=== PATIENT | female | born 1960 | race Caucasian/White ===

== ENCOUNTER 2017-12-28 15:20 | Inpatient (IN) ==
[2017-12-28 16:31] LABS: Basophils % 0.4 %; Eosinophils # 0.1 K/mcL (0.0-0.6); Eosinophils % 0.7 %; Hematocrit 40.1 % (35.3-44.9); Immature Granulocytes % 0.3 % (0-4); Lymphocytes % 27.2 %; Mean Corpuscular HGB Conc 32.4 g/dL (31.6-35.5); Mean Corpuscular Volume 89.3 fL (83.0-100.0); Mean Platelet Volume 10.8 fL (9.4-12.4); Monocytes % 8.9 %; Neutrophils # 6.8 K/mcL (1.6-8.9); Platelet Count 205 K/mcL (140-400); Red Blood Count 4.49 M/mcL (3.82-4.97); Red Cell Distribution Width 13.9 % (11.5-14.5); Segmented Neutrophils % 62.5 %
[2017-12-28 16:39] LABS: Prothrombin Time 11.4 Seconds (9.4-12.1)
[2017-12-28 16:48] LABS: Calcium 9.9 mg/dL (8.6-10.3); Potassium 4.2 mEq/L (3.5-5.1)
--- NOTE | 2017-12-28 19:37 | Emergency Department Note ---
Disposition Clinical Impression: Spinal cord compression Disposition: Admitted As Inpatient Condition: Fair Time of Disposition: 17:25 General Adult HPI - General Chief complaint: ED General Medical Stated complaint: Needs admitted Time Seen by Provider: 12/28/17 15:51 - History of Present Illness Pain Scale: 8 - Related Data Home Medications Medication Instructions Recorded Confirmed Atorvastatin [Lipitor] 80 mg PO HS 01/03/17 12/28/17 Cholecalciferol (D-3) [Vitamin D] 5,000 unit PO DAILY 01/03/17 12/28/17 Escitalopram Oxalate 20 mg PO DAILY 01/03/17 12/28/17 Exenatide Microspheres [Bydureon 2 mg SQ Q1W 01/03/17 12/28/17 Pen] Levothyroxine Sodium [Levoxyl] 100 mcg PO DAILY 01/03/17 12/28/17 Psyllium [Metamucil Fiber Singles 1 packet PO DAILY 01/03/17 12/28/17 Packet] SitaGLIPtin [Januvia] 100 mg PO DAILY 01/03/17 12/28/17 Calcitriol [Rocaltrol] 0.25 mcg PO DAILY 12/28/17 12/28/17 Insulin Glargine,Hum.rec.anlog 12/28/17 [Lantus Solostar] Tizanidine HCl 2 mg PO HS 12/28/17 12/28/17 Allergies Allergy/AdvReac Type Severity Reaction Status Date / Time Penicillins [PCN] Allergy Hives Verified 12/28/17 15:36 Past Medical History - Past Medical History Medical history: Reports: diabetes, hyperlipidemia, hypertension, renal disease, thyroid disease Surgical history: Reports: other Psychiatric history: Reports: depression - Social History Smoking Status: Never smoker Smokeless Tobacco Status: No Alcohol use: Reports: none Drug use: Reports: none Course Vital Signs Temperature 98.5 F 12/28/17 15:36 Pulse Rate 106 12/28/17 15:36 Respiratory Rate 15 12/28/17 15:36 Blood Pressure 103/67 12/28/17 15:36 O2 Sat by Pulse Oximetry 96 12/28/17 15:36 Temperature 98.5 F 12/28/17 16:48 Pulse Rate 106 12/28/17 16:48 Respiratory Rate 15 12/28/17 16:48 Blood Pressure 103/67 12/28/17 16:48 O2 Sat by Pulse Oximetry 96 12/28/17 16:48 Oxygen Delivery Oxygen Delivery Room Air Medical Decision Making - Lab Data Result diagrams: 12/28/17 16:04 12/28/17 16:04 Lab Results 12/28/17 12/28/17 12/28/17 Range/Units 16:04 16:04 16:04 WBC 10.9 (4.3-11.1) K/mcL RBC 4.49 (3.82-4.97) M/mcL Hgb 13.0 (11.5-15.4) g/dL Hct 40.1 (35.3-44.9) % MCV 89.3 (83.0-100.0) fL MCH 29.0 (28.0-33.3) pg MCHC 32.4 (31.6-35.5) g/dL RDW 13.9 (11.5-14.5) % Plt Count 205 (140-400) K/mcL MPV 10.8 (9.4-12.4) fL Immature Gran % 0.3 (0-4) % Seg Neutrophils % 62.5 % Lymphocytes % 27.2 % Monocytes % 8.9 % Eosinophils % 0.7 % Basophils % 0.4 % Neutrophils # 6.8 (1.6-8.9) K/mcL Lymphocytes # 3.0 (0.6-4.6) K/mcL Monocytes # 1.0 (0.0-1.3) K/mcL Eosinophils # 0.1 (0.0-0.6) K/mcL Basophils # 0.0 (0.0-0.2) K/mcL PT 11.4 (9.4-12.1) Seconds INR 1.0 APTT 35.0 (26.0-36.0) Seconds Sodium 140 (136-145) mEq/L Potassium 4.2 (3.5-5.1) mEq/L Chloride 104 (98-107) mEq/L Carbon Dioxide 28 (23-29) mEq/L BUN 25 H (6-20) mg/dL Creatinine 1.56 H (0.60-1.20) mg/dL Est GFR ( Amer) 41 L (> 60) Est GFR (Non-Af Amer) 34 L (> 60) BUN/Creatinine Ratio 16 (6-26) Glucose 138 H (70-105) mg/dL Calculated Osmolality 297 (280-300) Calcium 9.9 (8.6-10.3) mg/dL Attestation Statement - Attestation Attestation: I examined this patient and my medical decision-making was reviewed with the Resident Physician. I agree with the documented findings, disposition and treatment plan as described except to the extent set forth below. Patient presents to the emergency department she complaint of an abnormal neck MRI. Patient has been having symptoms. Dr. Miller will do an outpatient MRI that shows severe cord compression with edema in the mid cervical spine. She was sent for admission and surgery. Dr. Laughlin is been notified. Patient awake and alert sitting on the edge of the bed in no acute distress on my evaluation. Symmetric offal icer poultry strength. Plan. Admission for cervical spine surgery. Patient admitted to medicine. EKG normal sinus rhythm at [address] segment changes or T-wave inversions.
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
--- NOTE | 2017-12-28 19:39 | Internal Med History&Physical ---
Date of Encounter: 12/28/17 Time of Encounter: 17:22 Internal Medicine - H&P: HPI History of present illness: 57-year-old female with significant past medical history of diabetes presenting to the emergency department with chief complaint of neck pain and abnormal MRI of the neck. Patient states for the past few months she has had increased difficulty ambulating and weakness on the left side. An MRI was obtained She has severe compression of C4 and C5 due to disc bulging. Dr. Laughlin will proceed with surgery. He requested that hospitalist admit the patient and he will see in consult. Past Med Surg Social Fam HX - Past Medical History Medical history: diabetes, hyperlipidemia, hypertension, renal disease, thyroid disease Psychiatric history: depression - Past Surgical History Surgical History: other Additional surgical history: TUBAL - Social History Smoking Status: Never smoker Smokeless Tobacco Status: No Alcohol use: none Drug use: none - Family History Brother Hx Family Cardiac Disorders: Yes Father Hx Family Cardiac Disorders: Yes Internal Medicine - H&P: Meds Atorvastatin [Lipitor] 80 mg PO HS 01/03/17 [History] Cholecalciferol (D-3) [Vitamin D] 5,000 unit PO DAILY 01/03/17 [History] Exenatide Microspheres [Bydureon Pen] 2 mg SQ Q1W 01/03/17 [History] Levothyroxine Sodium [Levoxyl] 100 mcg PO DAILY 01/03/17 [History] RX: Escitalopram Oxalate 20 mg PO DAILY 01/03/17 [History] SitaGLIPtin [Januvia] 100 mg PO DAILY 01/03/17 [History] Aspirin [Lo-Dose Aspirin EC] 81 mg PO DAILY 12/28/17 [History] Insulin Glargine,Hum.rec.anlog [Lantus Solostar] 80 units SQ HS 12/28/17 [History] Psyllium Husk [Psyllium Fiber] 0.52 gm PO BID 12/28/17 [History] RX: Calcitriol [Rocaltrol] 0.25 mcg PO DAILY 12/28/17 [History] Tizanidine HCl 2 mg PO HS 12/28/17 [History] Allergy/AdvReac Type Severity Reaction Status Date / Time Penicillins [PCN] Allergy Hives Verified 12/28/17 15:36 All Systems PM: A 10-system review of systems was performed and is negative for pertinent findings except as documented above in the HPI. - Constitutional Constitutional: no chills, no fever(s), no night sweats - EENT Eyes: no change in vision, no discharge, no pain, no photophobia Ears: no ear discharge, no ear pain, no tinnitus Nose, mouth and throat: no dysphagia, no nasal discharge, no neck pain, no sore throat - Cardiovascular Cardiovascular ROS IM: no chest pain, no diaphoresis, no dyspnea, no lightheadedness, no palpitations, no syncope - Gastrointestinal Gastrointestinal: no abdominal pain, no diarrhea, no hematemesis, no hematochezia, no melena, no nausea, no vomiting - Neurological Neurological ROS: weakness, no confusion, no convulsions, no focal weakness, no numbness, no tingling, no tremor(s) - Constitutional Vitals: Temp Pulse Resp BP Pulse Ox 98.5 F 106 15 103/67 96 12/28/17 16:48 12/28/17 16:48 12/28/17 16:48 12/28/17 16:48 12/28/17 16:48 General appearance: Present: A&O X 3 Exam: see below - Head Head exam: Present: atraumatic, normocephalic - Neck Neck exam general surgery: Present: supple, trachea midline. Absent: lymphadenopathy - Cardiovascular Cardiovascular exam: Present: RRR, +S1, +S2. Absent: diastolic murmur, gallop, rubs, systolic murmur - GI/Abdominal GI/Abdominal exam: Present: normal bowel sounds, soft, no peritoneal signs. Absent: distended, tenderness - Extremities Exam Extremities exam: Present: warm, radial pulses palpable and symmetrical. Absent: calf tenderness, cyanotic, pedal edema Internal Med - H&P Results - Labs CBC & Chem 7: 12/31/17 05:06 12/31/17 05:06 Labs: Short CBC 12/28/17 Range/Units 16:04 WBC 10.9 (4.3-11.1) K/mcL Hgb 13.0 (11.5-15.4) g/dL Hct 40.1 (35.3-44.9) % Plt Count 205 (140-400) K/mcL Neutrophils # 6.8 (1.6-8.9) K/mcL BMP 12/28/17 16:04 Sodium 140 Potassium 4.2 Chloride 104 Carbon Dioxide 28 BUN 25 H Creatinine 1.56 H Glucose 138 H Calcium 9.9 - Assessment and plan (1) Spinal cord compression Current Visit: Yes Status: Acute Assessment and plan: The patient was sent from Dr. Hetal vyas with abnormal MRI. He will see her in consult. 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 marine terminal insulin use: with laborer marine terminal use Diabetes mellitus complication status: with kidney complications Diabetes mellitus complication detail: with chronic kidney disease Chronic kidney disease stage: stage 3 (moderate) Qualified Code(s): E11.22 - Type 2 diabetes mellitus with diabetic chronic kidney disease; N18.3 - Chronic kidney disease, stage 3 (moderate); Z79.4 - [facility] (current) use of insulin (4) DVT prophylaxis Current Visit: Yes Status: Acute Assessment and plan: We will start the patient on SCDs - Time Spent With Patient Total time spent is greater than 50% in coordination of care (as documented) at patient's floor/unit and/or counseling patient:
[2017-12-28] MEDS ORDERED: OXYCODONE Oral CONC 10 MG/0.5 ML ORAL.SYG SL PRN (19:43)
[2017-12-28] MEDS ORDERED: Mag Hydrox/Al Hydrox/Simeth 30 ML UDC PO PRN (19:43)
[2017-12-28] MEDS ORDERED: *HR* OxyCODONE Immed Rel 5 MG TABLET PO PRN (19:43)
[2017-12-28] MEDS ORDERED: Naloxone 0.4 MG/ML INJ IVP PRN (19:43)
[2017-12-28] MEDS ORDERED: *HR* HYDROcodone/Acet 5/325 mg TABLET PO PRN (19:43)
[2017-12-28] MEDS ORDERED: Acetaminophen 325 MG TABLET PO PRN (19:43)
[2017-12-28] MEDS ORDERED: (Exenatide Microspheres [Bydureon Pen] 2 MG) SQ SCH (19:45)
[2017-12-28] MEDS ORDERED: Dextrose Gel 15 GM/37.5 ML TUBE PO PRN ×2 (20:42)
[2017-12-28] MEDS ORDERED: D5% in Water 1,000 ML IVC PRN (20:42)
[2017-12-28 20:55] LABS: Activated Partial Thrombo Time 22.7 Seconds (26.0-36.0)
[2017-12-28 21:02] LABS: Chol/HDL Ratio 2.7 (0-4.9)
[2017-12-28] MEDS: tiZANidine 4 MG TABLET PO SCH (21:42)
[2017-12-28] MEDS: 0.9 % Sodium Chloride 1,000 ML IVC SCH (21:43)
[2017-12-29] MEDS: Insulin LISPRO 300 UNITS/3 ML VIAL SQ SCH ×4 (00:38→17:38)
[2017-12-29] MEDS: *HR* Dextrose 50 % in Water (Syg) 50 ML SYRINGE IVP PRN ×2 (00:48→06:02)
[2017-12-29] MEDS: 0.9 % Sodium Chloride 1,000 ML IVC SCH (05:41)
[2017-12-29] MEDS ORDERED: D5% in 0.45% NACL 1,000 ML IVC SCH (06:15)
[2017-12-29 06:22] LABS: Hematocrit 38.7 % (35.3-44.9); Hemoglobin 12.4 g/dL (11.5-15.4); Mean Corpuscular Hemoglobin 28.7 pg (28.0-33.3); Mean Corpuscular Volume 89.6 fL (83.0-100.0); Mean Platelet Volume 10.8 fL (9.4-12.4); Platelet Count 197 K/mcL (140-400); Red Blood Count 4.32 M/mcL (3.82-4.97); Red Cell Distribution Width 13.8 % (11.5-14.5)
[2017-12-29 06:52] LABS: Albumin 3.7 g/dL (3.5-5.7); Albumin/Globulin Ratio 1.2 (1.1-2.2); Bilirubin,Total 0.5 mg/dL (0.3-1.0); Calcium 9.6 mg/dL (8.6-10.3); Globulin 3.1 g/dL (2.4-3.5); Magnesium 1.9 mg/dL (1.6-2.6); Phosphorous 3.3 mg/dL (2.7-4.5); Potassium 4.2 mEq/L (3.5-5.1); Total Protein 6.8 g/dL (6.4-8.9)
[2017-12-29] MEDS ORDERED: *HR* SitaGLIPtin 100 MG TABLET PO SCH (09:00)
[2017-12-29] MEDS: Psyllium 1 PACKET POWD.PACK PO SCH (10:49)
[2017-12-29] MEDS: Cholecalciferol (D-3) 1,000 UNIT TABLET PO SCH (10:49)
--- NOTE | 2017-12-29 11:55 | Internal Med Progress Note ---
Hospitalist Progress Note - Encounter Date of Encounter: 12/29/17 Time of Encounter: 11:15 - Subjective Interval History: H&P reviewed. 57-year-old female with diabetes, hypertension, CKD, is admitted for cervical spinal cord compression. a/w spine surgery evaluation today. No active complaints other than chronic neck pain and L sided weakness. - Exam Vitals: Temp Pulse Resp BP Pulse Ox 98.0 F 80 19 127/79 100 12/29/17 11:06 12/29/17 11:06 12/29/17 11:06 12/29/17 11:06 12/29/17 11:06 Exam: General: Alert and oriented, not in acute distress. Cardiovascular:Normal S1 & S2, No JVD. Pulse regular. Lungs: clear to auscultation, no wheezes/rales Abdomen:Soft, non-tender, no rigidity. Neurological: LUE and LE power 4-/5, R UE/LE power and sensation intact. Unable to appreciate Smith sign - Assessment and Plan (1) Spinal cord compression Current Visit: Yes Status: Acute Assessment and Plan: a/w spine surgery evaluation, NPO for now analgesics (2) Diabetes mellitus Current Visit: Yes Status: Chronic Assessment and Plan: On Lantus 80U at HS, exenatide, and Januvia at home. hold off on exenatide and Januvia sliding scale coverage while NPO, resume levemir at lower dose (3) Hypothyroid Current Visit: No Status: Chronic Assessment and Plan: resume home meds (4) DVT prophylaxis Current Visit: Yes Status: Acute Assessment and Plan: SQ heparin - Time Spent with Patient Total time spent is greater than 50% in coordination of care (as documented) at patient's floor/unit and/or counseling patient: Plan of Care Discussed with: patient Internal Medicine: Result - Labs CBC & Chem 7: 12/29/17 05:59 12/29/17 05:59 Labs: Short CBC 12/28/17 12/29/17 Range/Units 16:04 05:59 WBC 10.9 8.8 (4.3-11.1) K/mcL Hgb 13.0 12.4 (11.5-15.4) g/dL Hct 40.1 38.7 (35.3-44.9) % Plt Count 205 197 (140-400) K/mcL Neutrophils # 6.8 (1.6-8.9) K/mcL BMP 12/28/17 12/29/17 16:04 05:59 Sodium 140 145 Potassium 4.2 4.2 Chloride 104 110 H Carbon Dioxide 28 27 BUN 25 H 22 H Creatinine 1.56 H 1.37 H Glucose 138 H 66 L Calcium 9.9 9.6 Liver Function 12/29/17 Range/Units 05:59 Total Bilirubin 0.5 (0.3-1.0) mg/dL AST 22 (13-39) Units/L ALT 21 (7-52) Units/L Alkaline Phosphatase 77 (34-104) Units/L Albumin 3.7 (3.5-5.7) g/dL - ABG Interpretation ABG results: PT/INR, D-dimer PT 11.0 Seconds (9.4-12.1) 12/28/17 20:27 Consult Discharge Plan - Plan Referrals: Irma Raymundo, OCEAN FREIGHT AGENT [Primary Care Provider] - ____ (2) Diabetes mellitus Qualifiers: Diabetes mellitus type: type 2 Diabetes mellitus snf insulin use: with terminal block assembler use Diabetes mellitus complication status: with kidney complications Diabetes mellitus complication detail: with chronic kidney disease Chronic kidney disease stage: stage 3 (moderate) Qualified Code(s): E11.22 - Type 2 diabetes mellitus with diabetic chronic kidney disease; N18.3 - Chronic kidney disease, stage 3 (moderate); Z79.4 - predatory animal exterminator (current) use of insulin (3) Hypothyroid Qualifiers: Hypothyroidism type: unspecified Qualified Code(s): E03.9 - Hypothyroidism, unspecified
[2017-12-29 14:12] LABS: Bilirubin,Urine Negative (Negative); Blood,Urine Negative (Negative); Clarity,Urine Clear (Clear); Color,Urine Yellow (Yellow); Glucose,Urine (UA) Normal (Normal); Ketones,Urine Negative (Negative); Leukocyte Esterase,Urine Small (Negative); Nitrite,Urine Negative (Negative); PH,Urine 6.5 pH Units (5.0-8.0); Protein,Urine Negative (Neg-Trace); Specific Gravity,Urine 1.006 (1.010-1.025); Urobilinogen,Urine Normal (Normal)
[2017-12-29 14:15] LABS: Hyaline Casts,Urine None Seen per lpf (None-Few)
[2017-12-29 14:42] LABS: Squamous Epithelial Cell,Urine Few per lpf (None-Few)
[2017-12-29 14:43] LABS: RBC,Urine 0-3 per hpf (0-3)
[2017-12-29 14:44] LABS: Bacteria,Urine Many per hpf (None-Few); Yeast,Urine Moderate per hpf (None Seen)
[2017-12-29] MEDS ORDERED: D5% in Water 1,000 ML IVC PRN (17:21)
[2017-12-29] MEDS: *HR* Heparin 5,000 UNIT/ML VIAL SQ SCH (17:44)
[2017-12-29] MEDS ORDERED: Insulin DETEMIR 100 UNIT/ML X5UNITS SQ SCH (21:00)
[2017-12-29] MEDS: tiZANidine 4 MG TABLET PO SCH (21:03)
[2017-12-30] MEDS: Insulin LISPRO 300 UNITS/3 ML VIAL SQ SCH ×4 (01:30→17:54)
[2017-12-30] MEDS: *HR* Heparin 5,000 UNIT/ML VIAL SQ SCH ×2 (06:26→17:55)
[2017-12-30] MEDS: Aspirin Enteric Coated 81 MG Tablet PO SCH (09:22)
[2017-12-30] MEDS: Cholecalciferol (D-3) 1,000 UNIT TABLET PO SCH (09:22)
[2017-12-30] MEDS: Psyllium 1 PACKET POWD.PACK PO SCH (09:23)
--- NOTE | 2017-12-30 10:30 | Internal Med Progress Note ---
Hospitalist Progress Note - Encounter Date of Encounter: 12/30/17 Time of Encounter: 09:50 - Subjective Interval History: No new events overnight, still a/w for spine surgery. No active complaints other than chronic neck pain and L sided weakness. - Exam Vitals: Temp Pulse Resp BP Pulse Ox 97.8 F 77 17 103/68 98 12/30/17 07:35 12/30/17 07:35 12/30/17 07:35 12/30/17 07:35 12/30/17 07:35 Exam: General: Alert and oriented, not in acute distress. Cardiovascular:Normal S1 & S2, No JVD. Pulse regular. Lungs: clear to auscultation, no wheezes/rales Abdomen:Soft, non-tender, no rigidity. Neurological: LUE and LE power 4-/5, R UE/LE power and sensation intact. Unable to appreciate Smith sign - Assessment and Plan (1) Spinal cord compression Current Visit: Yes Status: Acute Assessment and Plan: a/w spine surgery evaluation, unlikely to have op done today so will feed her analgesics (2) Diabetes mellitus Current Visit: Yes Status: Chronic Assessment and Plan: On Lantus 80U at HS, exenatide, and Januvia at home. hold off on exenatide and Januvia cut back levemir to 25U at HS in view of hypoglycemic episode this AM, continue sliding scale coverage ADA diet (3) Hypothyroid Current Visit: No Status: Chronic Assessment and Plan: resume home meds (4) DVT prophylaxis Current Visit: Yes Status: Acute Assessment and Plan: SQ heparin - Time Spent with Patient Total time spent is greater than 50% in coordination of care (as documented) at patient's floor/unit and/or counseling patient: Plan of Care Discussed with: nurse Internal Medicine: Result - Labs CBC & Chem 7: 12/29/17 05:59 12/29/17 05:59 Labs: Urine 12/28/17 Range/Units 13:35 Urine Color Yellow (Yellow) Urine Clarity Clear (Clear) Urine pH 6.5 (5.0-8.0) pH Units Ur Specific [place] 1.006 L (1.010-1.025) Urine Protein Negative (Neg-Trace) mg/dL Urine Glucose (UA) Normal (Normal) mg/dL - ABG Interpretation ABG results: PT/INR, D-dimer PT 11.0 Seconds (9.4-12.1) 12/28/17 20:27 Consult Discharge Plan - Plan Referrals: Irma Raymundo, OIL WELL FISHING TOOL OPERATOR [Primary Care Provider] - (2) Diabetes mellitus Qualifiers: Diabetes mellitus type: type 2 Diabetes mellitus intermodal dispatcher insulin use: with intermodal dispatcher use Diabetes mellitus complication status: with kidney complications Diabetes mellitus complication detail: with chronic kidney disease Chronic kidney disease stage: stage 3 (moderate) Qualified Code(s): E11.22 - Type 2 diabetes mellitus with diabetic chronic kidney disease; N18.3 - Chronic kidney disease, stage 3 (moderate); Z79.4 - computer terminal operator (current) use of insulin (3) Hypothyroid Qualifiers: Hypothyroidism type: unspecified Qualified Code(s): E03.9 - Hypothyroidism, unspecified
[2017-12-30] MEDS: tiZANidine 4 MG TABLET PO SCH (20:47)
[2017-12-30] MEDS ORDERED: Insulin DETEMIR 100 UNIT/ML X5UNITS SQ SCH (21:00)
[2017-12-31 05:41] LABS: Hematocrit 38.2 % (35.3-44.9); Hemoglobin 12.3 g/dL (11.5-15.4); Mean Corpuscular HGB Conc 32.2 g/dL (31.6-35.5); Mean Corpuscular Hemoglobin 28.5 pg (28.0-33.3); Mean Corpuscular Volume 88.4 fL (83.0-100.0); Mean Platelet Volume 10.7 fL (9.4-12.4); Platelet Count 177 K/mcL (140-400); Red Blood Count 4.32 M/mcL (3.82-4.97); Red Cell Distribution Width 13.7 % (11.5-14.5)
[2017-12-31 05:45] LABS: Prothrombin Time 11.6 Seconds (9.4-12.1)
[2017-12-31 05:55] LABS: Potassium 4.1 mEq/L (3.5-5.1)
[2017-12-31] MEDS: *HR* Heparin 5,000 UNIT/ML VIAL SQ SCH (06:17)
--- NOTE | 2017-12-31 07:40 | Spinal Consult Note ---
Date of Encounter: 12/30/17 Time of Encounter: 19:10 Assessment and Plan (1) Cervical stenosis of spinal canal Current Visit: Yes Status: Chronic (2) Myelomalacia of cervical cord Current Visit: Yes Status: Chronic (3) Cervical myelopathy Current Visit: Yes Status: Chronic On exam she is alert and mild distress secondary to neck pain afebrile vital signs stable. She has some wasting of her intrinsic of the left hand. She has a positive finger escape sign. She is unable to make a fist fully. She has impairment and dexterity with rapid alternating movements of the hands. 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 She is able to fire all upper extremity motor groups. Lungs are clear. Cardiovascular regular rate and rhythm. Abdomen obese and soft nontender. Her hips move symmetrically. There is no clonus. MRI of the cervical spine reveals multilevel degenerative changes. There is severe stenosis at C4-5 with spinal cord compression and associated myelomalacia of the spinal cord at this level. There is at least moderate stenosis at C5-6. Impression: 1) severe cervical stenosis with spinal cord compression 2) cervical myelopathy 3) myelomalacia of the cervical cord Plan: The patient has likelihood for neurologic progression. In this regard I find it reasonable to consider surgery in the form of anterior cervical decompression fusion C4-C6. Risk benefits possible complications and alte rnatives were fully discussed with the patient and she would like to proceed. Patient understands she must be medically optimized and cleared prior to surgical intervention. History of Present Illness Chief complaint: " falling a lot" HPI: Ms. Carrillo is a 57 year old female Who was seen by Dr. Redman as well as neurology whose had frequent falls as well as weakness left side greater than right. As part of workup MRI of the cervical spine was performed and it showed severe findings consistent with spinal cord compression. We are asked to see regarding definitive management. She denies bowel/blader symptoms but has signifcant neck pain. Past Med Surg Social Fam HX - Past Medical History Medical history: diabetes, hyperlipidemia, hypertension, renal disease, thyroid disease Psychiatric history: depression - Past Surgical History Surgical History: other Additional surgical history: TUBAL - Social History Smoking Status: Never smoker Smokeless Tobacco Status: No Alcohol use: none Drug use: none - Family History Brother Hx Family Cardiac Disorders: Yes Father Hx Family Cardiac Disorders: Yes Medications and Allergies Atorvastatin [Lipitor] 80 mg PO HS 01/03/17 [History] Cholecalciferol (D-3) [Vitamin D] 5,000 unit PO DAILY 01/03/17 [History] Escitalopram Oxalate 20 mg PO DAILY 01/03/17 [History] Exenatide Microspheres [Bydureon Pen] 2 mg SQ Q1W 01/03/17 [History] Levothyroxine Sodium [Levoxyl] 100 mcg PO DAILY 01/03/17 [History] SitaGLIPtin [Januvia] 100 mg PO DAILY 01/03/17 [History] Aspirin [Lo-Dose Aspirin EC] 81 mg PO DAILY 12/28/17 [History] Calcitriol [Rocaltrol] 0.25 mcg PO DAILY 12/28/17 [History] Insulin Glargine,Hum.rec.anlog [Lantus Solostar] 80 units SQ HS 12/28/17 [History] Psyllium Husk [Psyllium Fiber] 0.52 gm PO BID 12/28/17 [History] Tizanidine HCl 2 mg PO HS 12/28/17 [History] Allergy/AdvReac Type Severity Reaction Status Date / Time Penicillins [PCN] Allergy Hives Verified 12/28/17 15:36 Results - Labs Result Diagrams: 12/31/17 05:06 12/31/17 05:06 Labs: Abnormal lab results APTT 22.7 Seconds (26.0-36.0) L 12/28/17 20:27 Creatinine 1.56 mg/dL (0.60-1.20) H 12/31/17 05:06 Est GFR ( Amer) 41 (> 60) L 12/31/17 05:06 Est GFR (Non-Af Amer) 34 (> 60) L 12/31/17 05:06 Glucose 166 mg/dL (70-105) H 12/31/17 05:06 POC Glucose 175 mg/dL (70-99) H 12/30/17 20:39 Triglycerides 164 mg/dL (< 150) H 12/28/17 20:27 VLDL Cholesterol, Calc 33 mg/dL (< 31) H 12/28/17 20:27 Ur Specific [place] 1.006 (1.010-1.025) L 12/28/17 13:35 Ur Leukocyte Esterase Small (Negative) H 12/28/17 13:35 Urine Microscopic WBC 3-5 per hpf (0-3) H 12/28/17 13:35 Urine Bacteria Many per hpf (None-Few) H 12/28/17 13:35 Urine Yeast Moderate per hpf (None Seen) H 12/28/17 13:35 H & H 12/31/17 Range/Units 05:06 Hgb 12.3 (11.5-15.4) g/dL Hct 38.2 (35.3-44.9) % All other labs normal. Consult Discharge Plan - Plan Referrals: Irma Raymundo, [employer]SEMBLER [Primary Care Provider] -
[2017-12-31] MEDS ORDERED: Clindamycin 900 MG/50 ML 900 MG/50 ML IV.SOLN IVPB ONE ×2 (08:00→11:22)
[2017-12-31] MEDS: Aspirin Enteric Coated 81 MG Tablet PO SCH (08:55)
[2017-12-31] MEDS: Insulin LISPRO 300 UNITS/3 ML VIAL SQ SCH ×3 (08:55→21:37)
[2017-12-31] MEDS: Psyllium 1 PACKET POWD.PACK PO SCH (08:56)
[2017-12-31] MEDS: Cholecalciferol (D-3) 1,000 UNIT TABLET PO SCH (08:56)
[2017-12-31] MEDS ORDERED: Bacitracin 50,000 UNIT, Polymyxin B Sulfate 500,000 UNIT, Sodium Chloride IRRigation 1,... IR ONE (09:00)
--- NOTE | 2017-12-31 10:05 | Anesthesia Evaluation PreOp ---
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: Other (c-stenosis with cervical myelopathy) Other Medical History: Renal (CRI), Diabetes Type II, Thyroid (hypo) Anesthesia History: No Prior Anesthetic Complications, Past Anesthesia (tubal) Alcohol Use: none Drug use: none Medications and Allergies Atorvastatin [Lipitor] 80 mg PO HS 01/03/17 [History] Cholecalciferol (D-3) [Vitamin D] 5,000 unit PO DAILY 01/03/17 [History] Escitalopram Oxalate 20 mg PO DAILY 01/03/17 [History] Exenatide Microspheres [Bydureon Pen] 2 mg SQ Q1W 01/03/17 [History] Levothyroxine Sodium [Levoxyl] 100 mcg PO DAILY 01/03/17 [History] SitaGLIPtin [Januvia] 100 mg PO DAILY 01/03/17 [History] Aspirin [Lo-Dose Aspirin EC] 81 mg PO DAILY 12/28/17 [History] Calcitriol [Rocaltrol] 0.25 mcg PO DAILY 12/28/17 [History] Insulin Glargine,Hum.rec.anlog [Lantus Solostar] 80 units SQ HS 12/28/17 [History] Psyllium Husk [Psyllium Fiber] 0.52 gm PO BID 12/28/17 [History] Tizanidine HCl 2 mg PO HS 12/28/17 [History] Allergy/AdvReac Type Severity Reaction Status Date / Time Penicillins [PCN] Allergy Hives Verified 12/28/17 15:36 - Meds/Allergy Pre-op Review Medications Reviewed: Yes Allergies Reviewed: Yes Beta Blockers on Current Med List: No Anesthesia Results - Labs 12/31/17 05:06 12/31/17 05:06 - Imaging EKG: report reviewed (NSR) Anesthesia Exam Selected Entries 12/31/17 07:02 Temperature 98.3 F Pulse Rate 85 Respiratory Rate 16 Blood Pressure 135/84 O2 Sat by Pulse Oximetry 96 Oxygen Delivery Method Room Air Weight: 89kg BMI 34 NPO (# of Hours): 8 - HEENT Pupil (Motor): EOMI Mallampati: II Teeth: Edentulous Oral Opening: Greater than 3 - WINDOW SHADE CUTTER [employer] MOUNTER LOC: Oriented WINDOW SHADE [employer]TER [employer] MOUNTER Motor: Normal RLE, Normal LLE, Normal Face, Deficit RUE (weakness), Deficit LUE (weakness) WINDOW SHADE [employer]TER [employer] MOUNTER Sensory: Normal: RUE, LUE, RLE, LLE, Face - Cardiac Rhythm: Regular Murmur: None - Pulmonary Breath Sounds: bilateral Clear Respiratory Effort: Symmetrical Anesthesia Assess/Plan ASA Score: 2 Modified Jarratt Scale for Level of Consciousness: Cooperative, oriented, and tranquil Anesthetic Plan: General Monitoring Plan: Standard Monitors Recovery Plan: PACU (agrees to GA)
--- NOTE | 2017-12-31 10:10 | Internal Med Progress Note ---
Hospitalist Progress Note - Encounter Date of Encounter: 12/31/17 Time of Encounter: 09:00 - Subjective Interval History: No new events overnight, was evaluated by spine surgery and planned for intervention. No active complaints other than chronic neck pain and L sided weakness. Denies chest pain, exertional dyspnea, PND, or leg swelling. Fever/chills, cough, sputum production, or abdominal pain. Unable to ascertain pt's MET as she is debilitated from L sided weakness. DVT scan -ve - Exam Vitals: Temp Pulse Resp BP Pulse Ox 98.3 F 85 16 135/84 96 12/31/17 07:02 12/31/17 07:02 12/31/17 07:02 12/31/17 07:02 12/31/17 07:02 Exam: General: Alert and oriented, not in acute distress. Cardiovascular:Normal S1 & S2, No JVD. Pulse regular. Lungs: clear to auscultation, no wheezes/rales Abdomen:Soft, non-tender, no rigidity. Neurological: LUE and LE power 4-/5, R UE/LE power and sensation intact. Unable to appreciate Smith sign - Assessment and Plan (1) Pre-op evaluation Current Visit: Yes Status: Acute Assessment and Plan: Hx of CKD and insulin dep DM, no cardiac history Patient does not have any signs and symptoms of ACS, decompensated heart failure, or malignant arrhythmia CXR without acute cardiopulmonary process RCRI 1, 0.9% of MACE, considered low risk for moderate risk surgery no further testing indicated to optimize her pre-op status (2) Spinal cord compression Current Visit: Yes Status: Acute Assessment and Plan: For op today, pre-op eval as above analgesics (3) Diabetes mellitus Current Visit: Yes Status: Chronic Assessment and Plan: On Lantus 80U at HS, exenatide, and Januvia at home. hold off on exenatide and Januvia continue levemir at 25U HS, continue sliding scale coverage NPO for op, ADA diet after (4) CKD (chronic kidney disease) stage 3, GFR 30-59 ml/min Current Visit: Yes Status: Acute Assessment and Plan: stable, monitor Cr avoid nephrotoxins (5) Hypothyroid Current Visit: No Status: Chronic Assessment and Plan: resume home meds (6) DVT prophylaxis Current Visit: Yes Status: Acute Assessment and Plan: SQ heparin - Time Spent with Patient Total time spent is greater than 50% in coordination of care (as documented) at patient's floor/unit and/or counseling patient: Plan of Care Discussed with: patient Internal Medicine: Result - Labs CBC & Chem 7: 12/31/17 05:06 12/31/17 05:06 Labs: Short CBC 12/31/17 Range/Units 05:06 WBC 8.7 (4.3-11.1) K/mcL Hgb 12.3 (11.5-15.4) g/dL Hct 38.2 (35.3-44.9) % Plt Count 177 (140-400) K/mcL BMP 12/31/17 05:06 Sodium 140 Potassium 4.1 Chloride 105 Carbon Dioxide 28 BUN 18 Creatinine 1.56 H Glucose 166 H Calcium 10.0 - ABG Interpretation ABG results: PT/INR, D-dimer PT 11.6 Seconds (9.4-12.1) 12/31/17 05:06 - Impressions Impressions Chest X-Ray 12/31/17 08:00 IMPRESSION: 1. No acute abnormality. D/ / Amado Franco MD / Amado Franco MD Interpreting Provider: Amado Franco MD Consult Discharge Plan - Plan Referrals: Irma Raymundo, FLEET SALESPERSON [Primary Care Provider] - (3) Diabetes mellitus Qualifiers: Diabetes mellitus type: type 2 Diabetes mellitus terminal carman insulin use: with terminal carman use Diabetes mellitus complication status: with kidney complications Diabetes mellitus complication detail: with chronic kidney disease Chronic kidney disease stage: stage 3 (moderate) Qualified Code(s): E11.22 - Type 2 diabetes mellitus with diabetic chronic kidney disease; N18.3 - Chronic kidney disease, stage 3 (moderate); Z79.4 - snf (current) use of insulin (5) Hypothyroid Qualifiers: Hypothyroidism type: unspecified Qualified Code(s): E03.9 - Hypothyroidism, unspecified
[2017-12-31] MEDS ORDERED: *HR* Succinylcholine 200 MG/10 ML VIAL IVP ONE (10:11)
[2017-12-31] MEDS ORDERED: Lidocaine -MPF 4% 5 ML AMPUL ONE (10:11)
[2017-12-31] MEDS ORDERED: Lidocaine -MPF 2% 2 ML VIAL ONE (10:11)
[2017-12-31] MEDS ORDERED: Propofol 500 MG/50 ML INFUS..BTL ONE ×3 (10:11→11:49)
[2017-12-31] MEDS ORDERED: Ondansetron 4 MG/2 ML VIAL ONE ×2 (10:11→13:20)
[2017-12-31] MEDS ORDERED: *HR* Propofol 200 MG/20 ML VIAL IVP ONE ×3 (10:11→12:58)
[2017-12-31] MEDS ORDERED: *HR* FentaNYL (PF) 100 MCG/2 ML VIAL ONE (10:11)
[2017-12-31] MEDS ORDERED: *HR* Remifentanil 1 MG VIAL IVP ONE (10:12)
[2017-12-31] MEDS ORDERED: Acetaminophen IV 1,000 MG/100 ML INFUS..BTL ONE (12:27)
[2017-12-31] MEDS ORDERED: *HR* HYDROmorphone (PF) 1 MG/ML SYRINGE ONE (12:27)
[2017-12-31] MEDS ORDERED: Ondansetron 4 MG/2 ML VIAL IVP ONE (12:43)
[2017-12-31] MEDS ORDERED: *HR* OxyCODONE Immed Rel 5 MG TABLET PO PRN (12:43)
[2017-12-31] MEDS ORDERED: *HR* Promethazine 25 MG/ML VIAL IVP PRN (12:43)
--- NOTE | 2017-12-31 13:36 | Orthopedic Operative Note ---
Date of procedure: 12/31/17 Pre-op diagnosis: Cervical stenosis, cervical myelopathy, myelomalacia of the cervical cord Post-op diagnosis: same Operation/Findings: Anterior cervical decompression and fusion C4-C6: The patient was brought to the operating room and placed supine on the operating room table. Successful general endotracheal anesthesia intubation was performed. Neurophysiologic monitoring personnel placed leads on the upper and lower extremities as well as the cranium for EMG monitoring purposes. Appropriate baseline potentials were noted by the neurophysiologic monitoring staff. Butlre catheter was placed prior to positioning. Compression boots and stockings were placed for deep vein thrombosis prophylaxis. Padding was also placed all bony prominences including the ulnar nerve near the medial epicondyles of the elbows were appropriately padded. Mild traction was placed on the bilateral shoulders and taped into place. Preoperative antibiotics were administered. The area from the mandible bilaterally to the upper thoraces was prepped and draped in the usual sterile fashion. A transverse incision was made at the level of the cricoid cartilage which is approximately 3 cm in length and extended from the midline of the cervical spine laterally towards the sternocleidomastoid muscle on the left. We then performed standard medial approach to the carotid sheath. Sponges were used to tease the fascial medial to the sternocleidomastoid muscle while carefully controlling and palpating the carotid artery. Using careful dissection we were able to get to the level of the anterior vertebral bodies and longus coli muscles. The spinal needle was placed at the appropriate C4-5 level, and intraoperative radiograph was obtained which was a cervical spine lateral radiograph. The needle and radiograph confirmed we were at the correct C4-5 operative level. We further exposed this level by using Bovie cautery under the medial edge of the longus colli muscles to allow them to be retracted approximately 2 mm laterally on each side. An 11 blade was used to perform anterior discectomy at the appropriate C4-5 level after an initial annulotomy of the anterior longitudinal ligament and annulus was performed. Further disc material was removed with pituitary Rongeurs. Subsequently, Synthes pins were placed at the C4 and C5 vertebral bodies respectively to provide distraction. We then used a Trimline cervical retractor which was placed in both medial and lateral as well as inferior superior direction to allow full visualization of the appropriate C4-5 disc and C4 and C5 vertebral bodies. The Leica microscope was brought to the field and the remainder of the procedure was performed under the guidance of this microscope. Using pituitary rongeurs and small curettes, various micro-instruments, a full discectomy was performed at the appropriate C4-5 level. The posterior longitudinal ligament was encountered and appeared partially calcified. A portion of this ligament was removed. After complete and thorough discectomy and removal of spondylitic material was performed the endplates of the C4 and C5 vertebral bodies were prepared with a bur until allow bleeding of cancellous bone. A 8mm trial graft was evaluated and appeared to fit quite well within the excised C4-5 disc space. A cortico-cancellous allograft of 8 mm was utilized, carefully tapped into place within the excised disc space with the aid of a bone tamp. It was seated approximately 2 mm from the anterior edge of the cortex of the adjacent vertebral bodies. We then turned our attention to the C5-6 level where a similar series of procedures was performed including discectomy, removal of spondylitic material, end plate preparation, and trial grafting. An 8mm trial fit well within the C5-6 disc space. A 8 mm allograft was then placed at C5-6. A 42.5 mm cervical plate was then placed on the anterior aspect of the C4, C5, and C6 vertebral bodies. The plate was placed in the midline position after drilling six 13 mm self tapping screws and inserting them. They were locked in place using standard Venture plate maneuvers. At this point a lateral radiograph of the cervical spine was obtained and showed satisfactory position of the graft and plate. The wound was copiously irrigated and bleeders encountered were cauterized using Bovie cautery. Platysma was closed with interrupted 2-0 Vicryl sutures. Running 3-0 Monocryl suture was used for skin closure. Sterile dressing was placed over the neck wound. A cervical collar was placed. The patient was transferred to a hospital bed and extubated. The patient was noted to be fully motor and sensory intact in the recovery room at the end of the procedure. The medications. All sponge instrument and needle counts were correct at the end of the procedure. Anesthesia: GETA Surgeon: Man Laughlin Jr Was there an special education assistant present: No Estimated blood loss (cc): 25 Specimen: None Condition: stable Disposition: PACU
[2017-12-31] MEDS ORDERED: *HR* PHENYLEPHRINE 1,000 MCG/10 ML SYRINGE IVP ONE (14:36)
[2017-12-31] MEDS: *HR* HYDROmorphone (PF) 1 MG/ML SYRINGE IVP PRN ×2 (14:37→14:54)
[2017-12-31] MEDS ORDERED: EPHEDrine 50 MG/ML VIAL ONE (14:42)
[2017-12-31] MEDS ORDERED: Ringers Solution, Lactated 1,000 ML ONE (15:21)
[2017-12-31] MEDS ORDERED: Acetaminophen 325 MG TABLET PO PRN (15:38)
[2017-12-31] MEDS ORDERED: Ondansetron 4 MG/2 ML VIAL IVP PRN (15:38)
[2017-12-31] MEDS ORDERED: Naloxone 0.4 MG/ML INJ IVP PRN (15:38)
[2017-12-31] MEDS ORDERED: Ringers Solution, Lactated 1,000 ML IVC SCH (15:38)
--- NOTE | 2017-12-31 15:42 | Anesthesia Evaluation Post Op ---
Date of Encounter: 12/31/17 Time of Encounter: 15:22 - Vital Signs Vital Signs: Vital Signs/O2 Sat, Most Current Temp Pulse Resp BP Pulse Ox 97.9 F 78 20 114/70 98 12/31/17 15:17 12/31/17 15:17 12/31/17 15:17 12/31/17 15:17 12/31/17 15:17 - Lungs Lungs: Clear Ascult./Percussion - Airway Airway: Non-obstructed - Cardiovascular Regular Rate, Baseline Rhythm - Mental Status Mental Status: Alert & Oriented, Answers Appropriately - Pain Pain Scale: 0 Pain Scale used: Numeric (1 - 10) (verbalized) - Nausea Vomiting Nausea Vomiting: Not Present - Hydration Hydration: Tolerates oral liquids, Has not voided - Discharge PostOp Status: Transfer Patient to floor
[2017-12-31] MEDS ORDERED: Clindamycin 600 MG/50 ML 600 MG/50 ML IV.SOLN IVPB SCH (18:00)
[2017-12-31] MEDS ORDERED: *HR* Heparin 5,000 UNIT/ML VIAL SQ SCH (18:00)
[2017-12-31] MEDS: Insulin DETEMIR 100 UNIT/ML X5UNITS SQ SCH (21:40)
[2017-12-31] MEDS: Clindamycin 600 MG/50 ML 600 MG/50 ML IV.SOLN IVPB SCH (23:42)
[2017-12-31] MEDS: *HR* HYDROcodone/Acet 5/325 mg TABLET PO PRN (23:50)
[2018-01-01] MEDS ORDERED: Clindamycin 600 MG in D5% in Water 50 ML IVPB SCH
[2018-01-01] MEDS: Clindamycin 600 MG/50 ML 600 MG/50 ML IV.SOLN IVPB SCH (08:35)
[2018-01-01] MEDS: Insulin LISPRO 300 UNITS/3 ML VIAL SQ SCH ×4 (08:35→22:05)
--- NOTE | 2018-01-01 12:52 | Internal Med Progress Note ---
Hospitalist Progress Note - Encounter Date of Encounter: 01/01/18 Time of Encounter: 12:48 - Subjective Interval History: Pt seen and examined in the room. She is comfortable and has no complaints at this time. reported mild improvement of numbness. left foot swelling while sitting up, she is concerned for DVT. otherwise, she stated no pain on the surgi billie site. - Exam Vitals: Temp Pulse Resp BP Pulse Ox 98.6 F 88 16 114/75 92 01/01/18 10:49 01/01/18 10:49 01/01/18 10:49 01/01/18 10:49 01/01/18 10:49 Exam: PHYSICAL EXAMINATION: GENERAL APPEARANCE: The patient is alert, oriented and in no acute distress. HEENT: Head is normocephalic. The sinuses are nontender. Pupils are equal and reactive. The nares are patent. Oropharynx clear without lesions. NECK: surgical site with dry and intact dressing on the anterior neck.. HEART: Regular rate and rhythm. LUNGS: No crackles or wheezes are heard. ABDOMEN: Soft, nontender, nondistended with good bowel sounds heard. Inguinal area is normal. EXTREMITIES: Without cyanosis, clubbing or edema. NEUROLOGICAL: Gross nonfocal. SKIN: Warm and dry without any rash. - Assessment and Plan (1) Spinal cord compression Current Visit: Yes Status: Acute Assessment and Plan: Pt presented with abnormal MRI, which revealed severe cervical spinal stenosis, cervical myelopathy, and cervical myelomalacia. She underwent L5 to L7 decompression with fusion on 12/31/[address] Laughlin. She is stable. PT/OT following, medical social worker following for discharge planning. (2) Hypertension Current Visit: Yes Status: Acute Assessment and Plan: BP controlled, continue home medication. (3) Diabetes mellitus Current Visit: Yes Status: Chronic Assessment and Plan: Continue insulin sliding scale. (4) DVT prophylaxis Current Visit: Yes Status: Acute Assessment and Plan: Continue SCDs and heparin subcutaneous. - Time Spent with Patient Total time spent is greater than 50% in coordination of care (as documented) at patient's floor/unit and/or counseling patient: Greater than 35 minutes Plan of Care Discussed with: patient Internal Medicine: Result - Labs CBC & Chem 7: 12/31/17 05:06 12/31/17 05:06 - ABG Interpretation ABG results: PT/INR, D-dimer PT 11.6 Seconds (9.4-12.1) 12/31/17 05:06 - Impressions Impressions Cervical Spine X-Ray 12/31/17 13:14 IMPRESSION: 1. Expected new postoperative changes from C4 to at least C5 as above. 2. At least minimal to mild cervical spine degenerative changes. D/ / Storm Ingram MD / Storm Ingram MD Interpreting Provider: Storm Ingram MD Consult Discharge Plan - Plan Referrals: Irma Raymundo WOOD INSPECTOR [Primary Care Provider] - (2) Hypertension Qualifiers: Hypertension type: essential hypertension Qualified Code(s): I10 - Essential (primary) hypertension (3) Diabetes mellitus Qualifiers: Diabetes mellitus type: type 2 Diabetes mellitus oysterman insulin use: with fci use Diabetes mellitus complication status: with kidney complications Diabetes mellitus complication detail: with chronic kidney disease Chronic kidney disease stage: stage 3 (moderate) Qualified Code(s): E11.22 - Type 2 diabetes mellitus with diabetic chronic kidney disease; N18.3 - Chronic kidney disease, stage 3 (moderate); Z79.4 - oysterman (current) use of insulin
[2018-01-01] MEDS: *HR* OxyCODONE Immed Rel 5 MG TABLET PO PRN (17:09)
[2018-01-01] MEDS: *HR* HYDROcodone/Acet 5/325 mg TABLET PO PRN (19:55)
[2018-01-01] MEDS: Insulin DETEMIR 100 UNIT/ML X5UNITS SQ SCH (22:05)
[2018-01-02] MEDS: *HR* OxyCODONE Immed Rel 5 MG TABLET PO PRN (01:27)
[2018-01-02] MEDS: Insulin LISPRO 300 UNITS/3 ML VIAL SQ SCH ×4 (07:33→23:00)
[2018-01-02] MEDS: *HR* HYDROcodone/Acet 5/325 mg TABLET PO PRN ×2 (07:35→19:41)
--- NOTE | 2018-01-02 08:03 | Spine Progress Note ---
Date of Encounter: 01/01/18 Time of Encounter: 16:10 - Assessment and Plan (1) Cervical stenosis of spinal canal Current Visit: Yes Status: Chronic (2) Myelomalacia of cervical cord Current Visit: Yes Status: Chronic (3) Cervical myelopathy Current Visit: Yes Status: Chronic Subjective Principal diagnosis: Cervical stenosis, cervical myelopathy Interval history: The patient is without complaints. Afebrile vital signs are stable. Incision is clean dry and intact. Neurovascularly intact with regard to bilateral and lower extremities. Assessment :stable. Plan mobilize ,continue analgesics, discharge planning. We need rehabilitation. Objective Vital signs: Vital Signs Temp Pulse Resp BP Pulse Ox 01/02/18 06:49 98.4 F 95 18 135/76 93 01/02/18 04:09 98.7 F 95 17 148/78 95 01/01/18 23:05 98.4 F 104 15 135/74 94 01/01/18 19:58 98.4 F 101 15 122/72 93 01/01/18 16:02 98.9 F 100 15 134/80 93 01/01/18 15:32 98.7 F 99 15 93 01/01/18 10:49 98.6 F 88 16 114/75 92 Intake and Output 01/01/18 01/02/18 01/02/18 23:59 07:59 15:59 Intake Total 390 / 390 Output Total 350 / 350 200 / 200 Balance 40 / 40 -200 / -200 Intake: Oral 390 / 390 Output: Urine 350 / 350 200 / 200 Other: Meal Dinner Percent of Meal Consumed 70% # Voids 1 1 # Urine Diapers 1 Weight 96.2 kg 97.7 kg Blood Glucose* 270 232 Patient Weight 01/02/18 23:59 Weight 97.7 kg - Labs CBC & BMP: 12/31/17 05:06 12/31/17 05:06 Labs: Abnormal lab results APTT 22.7 Seconds (26.0-36.0) L 12/28/17 20:27 Creatinine 1.56 mg/dL (0.60-1.20) H 12/31/17 05:06 Est GFR ( Amer) 41 (> 60) L 12/31/17 05:06 Est GFR (Non-Af Amer) 34 (> 60) L 12/31/17 05:06 Glucose 166 mg/dL (70-105) H 12/31/17 05:06 POC Glucose 231 mg/dL (70-99) H 01/01/18 16:01 Triglycerides 164 mg/dL (< 150) H 12/28/17 20:27 VLDL Cholesterol, Calc 33 mg/dL (< 31) H 12/28/17 20:27 Ur Specific [place] 1.006 (1.010-1.025) L 12/28/17 13:35 Ur Leukocyte Esterase Small (Negative) H 12/28/17 13:35 Urine Microscopic WBC 3-5 per hpf (0-3) H 12/28/17 13:35 Urine Bacteria Many per hpf (None-Few) H 12/28/17 13:35 Urine Yeast Moderate per hpf (None Seen) H 12/28/17 13:35 Consult Discharge Plan - Plan Referrals: Irma Raymundo, [employer] [Primary Care Provider] -
--- NOTE | 2018-01-02 17:28 | Internal Med Progress Note ---
Hospitalist Progress Note - Encounter Date of Encounter: 01/02/18 Time of Encounter: 17:27 - Subjective Interval History: Pt seen and examined in the room. She is comfortable and has no complaints at this time. reported mild improvement of numbness. - Exam Vitals: Temp Pulse Resp BP Pulse Ox 98.5 F 93 18 132/79 94 01/02/18 16:44 01/02/18 16:44 01/02/18 16:44 01/02/18 16:44 01/02/18 16:44 Exam: PHYSICAL EXAMINATION: GENERAL APPEARANCE: The patient is alert, oriented and in no acute distress. HEENT: Head is normocephalic. The sinuses are nontender. Pupils are equal and reactive. The nares are patent. Oropharynx clear without lesions. NECK: surgical site with dry and intact dressing on the anterior neck.. HEART: Regular rate and rhythm. LUNGS: No crackles or wheezes are heard. ABDOMEN: Soft, nontender, nondistended with good bowel sounds heard. Inguinal area is normal. EXTREMITIES: Without cyanosis, clubbing or edema. NEUROLOGICAL: Gross nonfocal. SKIN: Warm and dry without any rash. - Assessment and Plan (1) Spinal cord compression Current Visit: Yes Status: Acute Assessment and Plan: Pt presented with abnormal MRI, which revealed severe cervical spinal stenosis, cervical myelopathy, and cervical myelomalacia. She underwent L5 to L7 decompression with fusion on 12/31/[address] Laughlin. She is stable. PT/OT f tonya social work specialist following for discharge planning. (2) Hypertension Current Visit: Yes Status: Acute Assessment and Plan: BP controlled, continue home medication. (3) Diabetes mellitus Current Visit: Yes Status: Chronic Assessment and Plan: Continue insulin sliding scale. (4) DVT prophylaxis Current Visit: Yes Status: Acute Assessment and Plan: Continue SCDs and heparin subcutaneous. - Time Spent with Patient Total time spent is greater than 50% in coordination of care (as documented) at patient's floor/unit and/or counseling patient: Greater than 35 minutes Plan of Care Discussed with: patient Internal Medicine: Result - Labs CBC & Chem 7: 12/31/17 05:06 12/31/17 05:06 - ABG Interpretation ABG results: PT/INR, D-dimer PT 11.6 Seconds (9.4-12.1) 12/31/17 05:06 Consult Discharge Plan - Plan Referrals: Irma Raymundo, VIOL[employer] CRIMES DETECTIVE [Primary Care Provider] - (2) Hypertension Qualifiers: Hypertension type: essential hypertension Qualified Code(s): I10 - Essential (primary) hypertension (3) Diabetes mellitus Qualifiers: Diabetes mellitus type: type 2 Diabetes mellitus ferry terminal agent insulin use: with ferry terminal agent use Diabetes mellitus complication status: with kidney complications Diabetes mellitus complication detail: with chronic kidney disease Chronic kidney disease stage: stage 3 (moderate) Qualified Code(s): E11.22 - Type 2 diabetes mellitus with diabetic chronic kidney disease; N18.3 - Chronic kidney disease, stage 3 (moderate); Z79.4 - custodial (current) use of insulin
[2018-01-02] MEDS ORDERED: Insulin DETEMIR 100 UNIT/ML X5UNITS SQ SCH (21:00)
[2018-01-03] MEDS: *HR* HYDROcodone/Acet 5/325 mg TABLET PO PRN (03:19)
[2018-01-03] MEDS: Insulin LISPRO 300 UNITS/3 ML VIAL SQ SCH ×2 (08:37→13:00)
[2018-01-03] MEDS ORDERED: Aspirin Enteric Coated 81 MG Tablet PO SCH (09:00)
[2018-01-03] MEDS ORDERED: Psyllium 1 PACKET POWD.PACK PO SCH (09:00)
--- NOTE | 2018-01-03 09:15 | Physician Discharge Referral ---
ExtendedCare Referral Info Transfer To: [facility] rehab Provider in Charge after Transfer: Other Institutional Level of Care: Skilled - Diagnosis (1) Spinal cord compression Priority: Primary Status: Acute (2) Hypertension Priority: Secondary Status: Acute (3) Diabetes mellitus Priority: Secondary Status: Chronic (4) DVT prophylaxis Priority: Primary Status: Acute Prognosis: Fair Aware of Diagnosis: Patient Aware of Prognosis: Patient - Transfer Medications Prescriptions: HYDROcodone/Acet 5/325 mg [[place] 5-325 mg] 1 tab PO Q6HR PRN 3 Days #12 tablet PRN Reason: Moderate Pain Home Medications: Atorvastatin [Lipitor] 80 mg PO HS 01/03/17 [History] Cholecalciferol (D-3) [Vitamin D] 5,000 unit PO DAILY 01/03/17 [History] Escitalopram Oxalate 20 mg PO DAILY 01/03/17 [History] Exenatide Microspheres [Bydureon Pen] 2 mg SQ Q1W 01/03/17 [History] Levothyroxine Sodium [Levoxyl] 100 mcg PO DAILY 01/03/17 [History] SitaGLIPtin [Januvia] 100 mg PO DAILY 01/03/17 [History] Aspirin [Lo-Dose Aspirin EC] 81 mg PO DAILY 12/28/17 [History] Calcitriol [Rocaltrol] 0.25 mcg PO DAILY 12/28/17 [History] Insulin Glargine,Hum.rec.anlog [Lantus Solostar] 80 units SQ HS 12/28/17 [History] Psyllium Husk [Psyllium Fiber] 0.52 gm PO BID 12/28/17 [History] Tizanidine HCl 2 mg PO HS 12/28/17 [History] Benzocaine/Menthol Vianey [Cepacol Sore Throat Lozenge] 1 each MM Q2H PRN lozenge 01/03/18 [Rx] Docusate [Colace] 100 mg PO BID capsule 01/03/18 [Rx] HYDROcodone/Acet 5/325 mg [[place] 5-325 mg] 1 tab PO Q6HR PRN 3 Days #12 tablet 01/03/18 [Rx] Allergies/Adverse Reactions: Allergy/AdvReac Type Severity Reaction Status Date / Time Penicillins [PCN] Allergy Hives Verified 12/28/17 15:36 - Respiratory Orders Smoking Cessation: Smoking cessation has been advised. For more information, call the [place] Tobacco Quit Line at 5-154-BOOT-NOW. - Ancillary Orders May use pressure relief devices daily prn - Advance Directives Code Status: Full Code - Mobility Orders Other - Rehabiliation Orders Rehab Potential: Fair Rehab Orders: Evaluation for Physical Therapy, Evaluation for Occupational Therapy - Treatments Skin tear care topically daily PRN per policy - Diet Orders Cardiac CERTIFICATION: I certify that the transfer of the above named patient to an Extended Care Facility is necessary for the continuing treatment of the diagnosis listed. The above information is true and accurate reflection of patient's current condition. Confidential - Redisclosure prohibited without a patient's written consent.
--- NOTE | 2018-01-03 10:09 | Discharge Summary ---
- NOTES TO OUTPATIENT PROVIDER Notes to Outpatient Provider: f/u with spine surgery within a week. f/u with PCP as needed. Date of Encounter: 01/03/18 Time of Encounter: 10:07 - Discharge Diagnosis (1) Spinal cord compression Priority: Primary Status: Acute (2) Hypertension Priority: Secondary Status: Acute Qualifiers: Hypertension type: essential hypertension Qualified Code(s): I10 - Essential (primary) hypertension (3) Diabetes mellitus Priority: Secondary Status: Chronic Qualifiers: Diabetes mellitus type: type 2 Diabetes mellitus terminal operator insulin use: with group home use Diabetes mellitus complication status: with kidney complications Diabetes mellitus complication detail: with chronic kidney disease Chronic kidney disease stage: stage 3 (moderate) Qualified Code(s): E11.22 - Type 2 diabetes mellitus with diabetic chronic kidney disease; N18.3 - Chronic kidney disease, stage 3 (moderate); 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 Carrillo is a 57 year old female with significant past medical history of diabetes presenting to the emergency department with chief complaint of neck pain and abnormal MRI of the neck. Patient states for the past few months she has had increased difficulty ambulating and weakness on the left side. An MRI was obtained She has severe compression of C4 and C5 due to disc bulging. She underwent C4-C6 decompression with fusion on 12/31 by spine surgery. She recovered well postoperatively. PT/OT have been working with her. She will be discharged to [facility] to continue rehab. She will f/u with spine surgery and PCP as scheduled. Discharge discussed with: patient Time spent discussing smoking cessation with patient: more than 10 minutes - Time Spent with Patient Total time spent providing and/or coordinating discharge services: Greater than 30 minutes - Discharge Medications Prescriptions: HYDROcodone/Acet 5/325 mg [[place] 5-325 mg] 1 tab PO Q6HR PRN 3 Days #12 tablet PRN Reason: Moderate Pain Home Medications: Atorvastatin [Lipitor] 80 mg PO HS 01/03/17 [History] Cholecalciferol (D-3) [Vitamin D] 5,000 unit PO DAILY 01/03/17 [History] Escitalopram Oxalate 20 mg PO DAILY 01/03/17 [History] Exenatide Microspheres [Bydureon Pen] 2 mg SQ Q1W 01/03/17 [History] Levothyroxine Sodium [Levoxyl] 100 mcg PO DAILY 01/03/17 [History] SitaGLIPtin [Januvia] 100 mg PO DAILY 01/03/17 [History] Aspirin [Lo-Dose Aspirin EC] 81 mg PO DAILY 12/28/17 [History] Calcitriol [Rocaltrol] 0.25 mcg PO DAILY 12/28/17 [History] Insulin Glargine,Hum.rec.anlog [Lantus Solostar] 80 units SQ HS 12/28/17 [History] Psyllium Husk [Psyllium Fiber] 0.52 gm PO BID 12/28/17 [History] Tizanidine HCl 2 mg PO HS 12/28/17 [History] Benzocaine/Menthol Vianey [Cepacol Sore Throat Lozenge] 1 each MM Q2H PRN lozenge 01/03/18 [Rx] Docusate [Colace] 100 mg PO BID capsule 01/03/18 [Rx] HYDROcodone/Acet 5/325 mg [[place] 5-325 mg] 1 tab PO Q6HR PRN 3 Days #12 tablet 01/03/18 [Rx] Allergies/Adverse Reactions: Allergy/AdvReac Type Severity Reaction Status Date / Time Penicillins [PCN] Allergy Hives Verified 12/28/17 15:36 Date of admission: 12/31/17 12:08 Primary care physician: Irma Raymundo CNP Consults: 12/31/17 15:38 Consult to Occupational Therapy [CONS] Routine Comment: Evaluate, develop and implement POC Reason for Consult: Postoperative rehabilitation Does patient have active BEDREST order?: No Is patient medically & hemodynamically stable?: Yes Patient assessed for mobility or mobilized this visit?: No Consult to Physical Therapy [CONS] Routine Comment: Evaluate, develop and implement POC Reason for Consult: Postoperative rehabilitation Does patient have active BEDREST order?: No Is patient medically & hemodynamically stable?: Yes Patient assessed for mobility or mobilized this visit?: No Consult to Spine Navigator [CONS] [CONS] Routine Anticipated date of discharge: 01/03/18 - Constitutional Vitals: Temp Pulse Resp BP Pulse Ox 98.3 F 89 16 127/79 92 01/03/18 07:16 01/03/18 07:16 01/03/18 07:16 01/03/18 07:16 01/03/18 09:02 General appearance: Present: A&O X 3 Exam: PHYSICAL EXAMINATION: GENERAL APPEARANCE: The patient is alert, oriented and in no acute distress. HEENT: Head is normocephalic. The sinuses are nontender. Pupils are equal and reactive. The nares are patent. Oropharynx clear without lesions. NECK: surgical site with dry and intact dressing on the anterior neck.. HEART: Regular rate and rhythm. LUNGS: No crackles or wheezes are heard. ABDOMEN: Soft, nontender, nondistended with good bowel sounds heard. Inguinal area is normal. EXTREMITIES: Without cyanosis, clubbing or edema. NEUROLOGICAL: Gross nonfocal. SKIN: Warm and dry without any rash. - Patient Status Disposition: Transfer SNF Condition: Fair Functional capacity at discharge: uses cane/walker Overall status at discharge: patient is progressing back to baseline - Discharge Instructions Follow Up With: Irma Raymundo FURNITURE TECHNICIAN [Primary Care Provider] - - Diet and Activity Activity: increase activity as tolerated Diet: diabetic diet
[2018-01-03 11:49] VITALS: BP 125/86
[2018-01-03] MEDS ORDERED: tiZANidine 4 MG TABLET PO SCH (21:00)
--- NOTE | 2018-01-04 09:50 | Electrocardiograph Report ---
[place] [id number] Test Date: 2017-12-28 Pat Name: Kym Carrillo Department: [id number] Room: [facility] Gender: F Play Therapist: : 1960 Requested By: Mckayla Rodriguez Order Number: [id number] Reading MD: Tom Gonzales Measurements Intervals [place] Rate: 88 P: 39 CA: 127 QRS: 46 QRSD: 73 T: 37 QT: 355 QTc: 430 Interpretive Statements Sinus rhythm Electronically Signed On 01-04-2018 9:48:52 EDT by Tom Gonzales
== END 2018-01-03 15:30 | DRG 472 ==
LOC: 3NENU 15:20 → EMEROOARM 15:20 → SUATTDRO 16:59 → 3NENU 19:29
PROVIDERS: ADMIT Internal Medicine Nephrology; ATTEND Internal Medicine

== ENCOUNTER 2020-03-16 15:35 | Observation (INO) ==
[2020-03-16] MEDS ORDERED: Naloxone 0.4 MG/ML INJ IVP PRN (18:34)
[2020-03-16] MEDS ORDERED: Ondansetron 4 MG/2 ML VIAL IVP PRN (18:34)
[2020-03-16] MEDS ORDERED: Acetaminophen 325 MG TABLET PO PRN (19:28)
[2020-03-16] MEDS ORDERED: 0.9 % Sodium Chloride 1,000 ML IVC SCH (19:30)
[2020-03-16] MEDS: Nystatin POWDER 30 GM BOTTLE TP SCH (20:35)
[2020-03-16] MEDS ORDERED: Dextrose Gel 15 GM/37.5 ML TUBE PO PRN ×2 (21:12)
[2020-03-16] MEDS ORDERED: D5% in Water 1,000 ML IVC PRN (21:12)
[2020-03-16] MEDS ORDERED: *HR* Dextrose 50 % in Water (Vial) 50 ML VIAL IVP PRN (21:12)
[2020-03-16] MEDS: Insulin LISPRO 300 UNITS/3 ML VIAL SUBQ SCH (22:46)
[2020-03-16 23:04] LABS: Bacteria,Urine Moderate per hpf (None-Few); Bilirubin,Urine Negative (Negative); Blood,Urine Trace (Negative); Clarity,Urine Turbid (Clear); Color,Urine Yellow (Yellow); Glucose,Urine (UA) Normal (Normal); Ketones,Urine Negative (Negative); Leukocyte Esterase,Urine Large (Negative); Mucus,Urine Few per lpf (None-Few); Nitrite,Urine Negative (Negative); Protein,Urine 30 mg/dL (Neg-Trace); Squamous Epithelial Cell,Urine Few per hpf (None-Few); Urobilinogen,Urine >=8.0 mg/dL (Normal); WBC,Urine TNTC per hpf (0-3)
[2020-03-16] MEDS ORDERED: cefTRIAXone 1,000 MG in 0.9 % Sodium Chloride Mini Bag 100 ML IVPB SCH (23:45)
[2020-03-17 05:25] LABS: Basophils % 0.2 %; Eosinophils % 0.1 %; Hematocrit 31.9 % (35.3-44.9); Hemoglobin 9.7 g/dL (11.5-15.4); Immature Granulocytes % 0.4 % (0-4); Lymphocytes # 1.6 K/mcL (0.6-4.6); Lymphocytes % 13.4 %; Mean Corpuscular HGB Conc 30.4 g/dL (31.6-35.5); Mean Corpuscular Hemoglobin 27.7 pg (28.0-33.3); Mean Corpuscular Volume 91.1 fL (83.0-100.0); Mean Platelet Volume 10.3 fL (9.4-12.4); Monocytes # 0.8 K/mcL (0.0-1.3); Monocytes % 6.4 %; Neutrophils # 9.6 K/mcL (1.6-8.9); Platelet Count 226 K/mcL (140-400); Red Cell Distribution Width 13.6 % (11.5-14.5); Segmented Neutrophils % 79.5 %; White Blood Count 12.1 K/mcL (4.3-11.1)
[2020-03-17 05:35] LABS: INR 1.1; Prothrombin Time 13.1 Seconds (9.4-12.1)
[2020-03-17 05:44] LABS: Calcium 9.2 mg/dL (8.6-10.3)
[2020-03-17 05:47] LABS: Magnesium 1.9 mg/dL (1.6-2.6); Phosphorous 3.2 mg/dL (2.7-4.5)
[2020-03-17 05:59] LABS: Thyroid Stimulating Hormone 0.408 mcIU/mL (0.340-5.600)
[2020-03-17] MEDS: Insulin LISPRO 300 UNITS/3 ML VIAL SUBQ SCH ×4 (08:14→20:53)
[2020-03-17] MEDS: Nystatin POWDER 30 GM BOTTLE TP SCH ×2 (08:15→20:54)
[2020-03-17] MEDS ORDERED: Vancomycin 1,000 MG VIAL ONE (13:01)
[2020-03-17] MEDS ORDERED: *HR* Propofol 200 MG/20 ML VIAL IVP ONE (13:14)
[2020-03-17] MEDS ORDERED: Lidocaine -MPF 2% 2 ML VIAL ONE (13:15)
[2020-03-17] MEDS ORDERED: *HR* Midazolam HCl 2 MG/2 ML VIAL ONE (13:24)
[2020-03-17] MEDS ORDERED: Ropivacaine/PF 0.5% 30 ML VIAL ONE (13:24)
[2020-03-17] MEDS ORDERED: Ondansetron 4 MG/2 ML VIAL ONE (13:55)
[2020-03-17] MEDS ORDERED: *HR* Dextrose 50 % in Water (Vial) 50 ML VIAL IVP PRN (15:27)
[2020-03-17] MEDS ORDERED: D5% in Water 1,000 ML IVC PRN (15:27)
[2020-03-17] MEDS ORDERED: Dextrose Gel 15 GM/37.5 ML TUBE PO PRN ×2 (15:27)
[2020-03-17] MEDS ORDERED: Sennosides 8.6 MG TABLET PO PRN (15:27)
[2020-03-17] MEDS: CeFAZolin 2 GM/120 ML BAG IVPB SCH ×2 (16:45→23:55)
[2020-03-17] MEDS ORDERED: Insulin LISPRO 300 UNITS/3 ML VIAL SUBQ SCH (21:00)
[2020-03-17] MEDS: cefTRIAXone 1,000 MG in 0.9 % Sodium Chloride Mini Bag 100 ML IVPB SCH (23:13)
[2020-03-18 05:00] LABS: Basophils % 0.1 %; Hematocrit 29.2 % (35.3-44.9); Hemoglobin 9.2 g/dL (11.5-15.4); Immature Granulocytes % 0.6 % (0-4); Lymphocytes # 1.8 K/mcL (0.6-4.6); Lymphocytes % 13.1 %; Mean Corpuscular HGB Conc 31.5 g/dL (31.6-35.5); Mean Corpuscular Hemoglobin 29.4 pg (28.0-33.3); Mean Corpuscular Volume 93.3 fL (83.0-100.0); Mean Platelet Volume 10.6 fL (9.4-12.4); Monocytes # 0.8 K/mcL (0.0-1.3); Monocytes % 5.7 %; Neutrophils # 10.8 K/mcL (1.6-8.9); Platelet Count 198 K/mcL (140-400); Red Blood Count 3.13 M/mcL (3.82-4.97); Red Cell Distribution Width 13.7 % (11.5-14.5); Segmented Neutrophils % 80.5 %; White Blood Count 13.4 K/mcL (4.3-11.1)
[2020-03-18 05:23] LABS: Calcium 8.9 mg/dL (8.6-10.3); Magnesium 1.9 mg/dL (1.6-2.6); Potassium 4.8 mEq/L (3.5-5.1)
[2020-03-18] MEDS: Cholecalciferol (D-3) 1,000 UNIT (25MCG) TABLET PO SCH (08:21)
[2020-03-18] MEDS: Aspirin Enteric Coated 81 MG Tablet PO SCH (08:21)
[2020-03-18] MEDS: Nystatin POWDER 30 GM BOTTLE TP SCH ×3 (08:22→20:16)
[2020-03-18] MEDS: Psyllium 1 PACKET POWD.PACK PO SCH ×2 (08:22→20:15)
[2020-03-18] MEDS: Insulin LISPRO 300 UNITS/3 ML VIAL SUBQ SCH ×4 (08:25→20:16)
[2020-03-18] MEDS: Acetaminophen 325 MG TABLET PO PRN (15:18)
[2020-03-18] MEDS: cefTRIAXone 1,000 MG in 0.9 % Sodium Chloride Mini Bag 100 ML IVPB SCH (23:24)
[2020-03-19] MEDS: Acetaminophen 325 MG TABLET PO PRN ×2 (00:07→08:15)
[2020-03-19 05:14] LABS: Basophils % 0.2 %; Eosinophils # 0.1 K/mcL (0.0-0.6); Eosinophils % 0.6 %; Hematocrit 27.7 % (35.3-44.9); Hemoglobin 8.7 g/dL (11.5-15.4); Immature Granulocytes % 0.4 % (0-4); Lymphocytes # 3.2 K/mcL (0.6-4.6); Lymphocytes % 27.9 %; Mean Corpuscular HGB Conc 31.4 g/dL (31.6-35.5); Mean Corpuscular Hemoglobin 28.5 pg (28.0-33.3); Mean Corpuscular Volume 90.8 fL (83.0-100.0); Mean Platelet Volume 10.7 fL (9.4-12.4); Monocytes # 1.2 K/mcL (0.0-1.3); Monocytes % 10.2 %; Platelet Count 188 K/mcL (140-400); Red Blood Count 3.05 M/mcL (3.82-4.97); Red Cell Distribution Width 13.8 % (11.5-14.5); Segmented Neutrophils % 60.7 %; White Blood Count 11.6 K/mcL (4.3-11.1)
[2020-03-19 05:31] LABS: Calcium 8.7 mg/dL (8.6-10.3); Magnesium 1.9 mg/dL (1.6-2.6); Potassium 4.3 mEq/L (3.5-5.1)
[2020-03-19] MEDS: Psyllium 1 PACKET POWD.PACK PO SCH (08:13)
[2020-03-19] MEDS: Cholecalciferol (D-3) 1,000 UNIT (25MCG) TABLET PO SCH (08:14)
[2020-03-19] MEDS: Aspirin Enteric Coated 81 MG Tablet PO SCH (08:15)
[2020-03-19] MEDS: Insulin LISPRO 300 UNITS/3 ML VIAL SUBQ SCH ×2 (08:18→13:39)
[2020-03-19] MEDS: Nystatin POWDER 30 GM BOTTLE TP SCH (08:25)
[2020-03-19 09:00] LABS: Estimated Average Glucose 203 mg/dl; Hemoglobin A1C 8.7 %
[2020-03-19] MEDS ORDERED: 0.9 % Sodium Chloride 1,000 ML IV ONE (11:31)
[2020-03-19 13:43] VITALS: BP 118/75
[2020-03-19 14:39] LABS: Adenovirus Not Detected (Not Detect); Bordetella Pertussis Not Detected (Not Detect); Chlamydophila pneumoniae Not Detected (Not Detect); Coronavirus 229E Not Detected (Not Detect); Coronavirus HKU1 Not Detected (Not Detect); Coronavirus NL63 Not Detected (Not Detect); Coronavirus OC43 Not Detected (Not Detect); Human Metapneumovirus Not Detected (Not Detect); Human Rhinovirus/Enterovirus Not Detected (Not Detect); Influenza A Subtype 2009 H1 Not Detected (Not Detect); Influenza B Not Detected (Not Detect); Mycoplasma pneumoniae Not Detected (Not Detect); Parainfluenza Virus 1 Not Detected (Not Detect); Parainfluenza Virus 2 Not Detected (Not Detect); Parainfluenza Virus 3 Not Detected (Not Detect); Parainfluenza Virus 4 Not Detected (Not Detect); Respiratory Syncytial Virus Not Detected (Not Detect); SARS-CoV-2 Not Detected (Not Detect)
== END 2020-03-19 18:15 ==
LOC: 3NENU → SUATTDRO 18:08
PROVIDERS: ADMIT Internal Medicine; ATTEND Pharmacist

== ENCOUNTER 2020-08-08 15:37 | Observation (INO) ==
[2020-08-08] MEDS ORDERED: *HR* Propofol 200 MG/20 ML VIAL IVP ONE (16:51)
[2020-08-08] MEDS ORDERED: Lidocaine 1% 20 ML MDV ONE (20:04)
[2020-08-08] MEDS ORDERED: Naloxone 0.4 MG/ML INJ IVP PRN (20:27)
[2020-08-08] MEDS ORDERED: Acetaminophen 325 MG TABLET PO PRN (20:27)
[2020-08-08] MEDS ORDERED: 0.9 % Sodium Chloride 1,000 ML IVC SCH (20:30)
[2020-08-08] MEDS ORDERED: Prochlorperazine 10 MG/2 ML VIAL IVP PRN (20:35)
[2020-08-08] MEDS ORDERED: D5% in Water 1,000 ML IVC PRN (20:40)
[2020-08-08] MEDS ORDERED: *HR* Dextrose 50 % in Water (Vial) 50 ML VIAL IVP PRN ×2 (20:40→23:37)
[2020-08-08] MEDS ORDERED: Dextrose Gel 15 GM/37.5 ML TUBE PO PRN ×2 (20:40)
[2020-08-08] MEDS ORDERED: Insulin LISPRO 300 UNITS/3 ML VIAL SUBQ SCH (21:00)
[2020-08-08] MEDS ORDERED: *HR* FentaNYL (PF) 100 MCG/2 ML VIAL ONE (21:24)
[2020-08-08] MEDS ORDERED: *HR* LORazepam 2 MG/ML VIAL IVP PRN (21:28)
[2020-08-08] MEDS ORDERED: *HR* HYDROmorphone PF 0.5 MG/0.5 ML SYRINGE IVP PRN (21:30)
[2020-08-08] MEDS ORDERED: Ondansetron 4 MG/2 ML VIAL IVP PRN (21:30)
[2020-08-08 21:37] LABS: Basophils % 0.4 %; Eosinophils # 0.1 K/mcL (0.0-0.6); Eosinophils % 1.3 %; Hematocrit 30.7 % (35.3-44.9); Hemoglobin 9.5 g/dL (11.5-15.4); Immature Granulocytes % 0.2 % (0-4); Lymphocytes # 2.8 K/mcL (0.6-4.6); Lymphocytes % 33.2 %; Mean Corpuscular HGB Conc 30.9 g/dL (31.6-35.5); Mean Corpuscular Volume 90.6 fL (83.0-100.0); Mean Platelet Volume 9.7 fL (9.4-12.4); Monocytes # 0.9 K/mcL (0.0-1.3); Monocytes % 10.3 %; Neutrophils # 4.7 K/mcL (1.6-8.9); Platelet Count 235 K/mcL (140-400); Red Blood Count 3.39 M/mcL (3.82-4.97); Segmented Neutrophils % 54.6 %; White Blood Count 8.6 K/mcL (4.3-11.1)
[2020-08-08] MEDS ORDERED: Clindamycin 900 MG/50 ML 900 MG/50 ML IV.SOLN IVPB ONE (21:45)
[2020-08-08] MEDS ORDERED: Ondansetron 4 MG/2 ML VIAL ONE (22:00)
[2020-08-08 22:02] LABS: Alanine Aminotransferase 10 Units/L (7-52); Albumin 3.2 g/dL (3.5-5.7); Albumin/Globulin Ratio 0.9 (1.1-2.2); Alkaline Phosphatase 83 Units/L (34-104); Aspartate Amino Transferase 11 Units/L (13-39); BUN/Creatinine Ratio 12 (6-26); Bilirubin,Total 0.4 mg/dL (0.3-1.0); Blood Urea Nitrogen 36 mg/dL (8-23); Calcium 8.9 mg/dL (8.6-10.3); Carbon Dioxide 24 mEq/L (23-29); Chloride 110 mEq/L (98-107); Globulin 3.5 g/dL (2.4-3.5); Glucose 77 mg/dL (70-105); Osmolality,Calculated 299 (280-300); Potassium 4.4 mEq/L (3.5-5.1); Sodium 141 mEq/L (136-145); Total Protein 6.7 g/dL (6.4-8.9); Troponin I < 0.03 ng/mL (< 0.04); eGFR For African Americans 19 (> 60); eGFR For Non-African Americans 15 (> 60)
[2020-08-09] MEDS ORDERED: Naloxone 0.4 MG/ML INJ IVP PRN
[2020-08-09] MEDS ORDERED: Dextrose Gel 15 GM/37.5 ML TUBE PO PRN ×2
[2020-08-09] MEDS ORDERED: D5% in Water 1,000 ML IVC PRN
[2020-08-09] MEDS ORDERED: *HR* Dextrose 50 % in Water (Vial) 50 ML VIAL IVP PRN
[2020-08-09] MEDS ORDERED: Prochlorperazine 10 MG/2 ML VIAL IVP PRN
[2020-08-09] MEDS ORDERED: *HR* LORazepam 2 MG/ML VIAL IVP PRN
[2020-08-09 03:10] LABS: Hemoglobin 8.8 g/dL (11.5-15.4); Mean Corpuscular HGB Conc 31.4 g/dL (31.6-35.5); Mean Corpuscular Hemoglobin 28.6 pg (28.0-33.3); Mean Corpuscular Volume 90.9 fL (83.0-100.0); Mean Platelet Volume 9.6 fL (9.4-12.4); Platelet Count 204 K/mcL (140-400); Red Blood Count 3.08 M/mcL (3.82-4.97); Red Cell Distribution Width 15.1 % (11.5-14.5); White Blood Count 8.6 K/mcL (4.3-11.1)
[2020-08-09 03:17] LABS: INR 1.1; Prothrombin Time 12.9 Seconds (9.4-12.1)
[2020-08-09 03:28] LABS: Calcium 8.6 mg/dL (8.6-10.3); Chol/HDL Ratio 2.5 (0-4.9); Magnesium 1.7 mg/dL (1.6-2.6); Potassium 4.5 mEq/L (3.5-5.1)
[2020-08-09 03:30] LABS: % Iron Saturation 11 % (15-50); Iron 28 mcg/dL (50-170); Transferrin 188 mg/dL (203-362)
[2020-08-09 03:48] LABS: Ferritin 28 ng/mL (10-120)
[2020-08-09 03:54] LABS: Folate 10.8 ng/mL (3.0-16.0)
[2020-08-09 04:06] LABS: Estimated Average Glucose 140 mg/dl; Hemoglobin A1C 6.5 %
[2020-08-09] MEDS ORDERED: Insulin LISPRO 300 UNITS/3 ML VIAL SUBQ SCH (07:30)
[2020-08-09] MEDS ORDERED: Aspirin Enteric Coated 81 MG Tablet PO SCH (09:00)
[2020-08-09] MEDS ORDERED: *HR* SitaGLIPtin 100 MG TABLET PO SCH (09:00)
[2020-08-09] MEDS ORDERED: Clindamycin 300 MG/50 ML 300 MG/50 ML IV.SOLN IVPB SCH (09:00)
[2020-08-09] MEDS ORDERED: Cholecalciferol (D-3) 1,000 UNIT (25MCG) TABLET PO SCH (09:00)
[2020-08-09] MEDS: Cholecalciferol (D-3) 1,000 UNIT (25MCG) TABLET PO SCH (09:18)
[2020-08-09] MEDS: *HR* SitaGLIPtin 100 MG TABLET PO SCH (09:19)
[2020-08-09] MEDS: Aspirin Enteric Coated 81 MG Tablet PO SCH (09:19)
[2020-08-09] MEDS: Insulin LISPRO 300 UNITS/3 ML VIAL SUBQ SCH ×4 (09:21→22:10)
[2020-08-09] MEDS ORDERED: *HR* HYDROcodone/Acet 5/325 mg TABLET PO PRN (12:06)
[2020-08-09 18:21] LABS: Sodium, Urine 62.6 mEq/L
[2020-08-09] MEDS ORDERED: NON-FORMULARY MEDICATION 1 EACH EACH (Atorvastatin Calcium [Lipitor] 80 MG Tablet) PO SCH (21:00)
[2020-08-09] MEDS: Clindamycin 300 MG/50 ML 300 MG/50 ML IV.SOLN IVPB SCH (22:11)
[2020-08-10 05:38] LABS: Hematocrit 26.7 % (35.3-44.9); Hemoglobin 8.2 g/dL (11.5-15.4); Mean Corpuscular HGB Conc 30.7 g/dL (31.6-35.5); Mean Corpuscular Hemoglobin 27.6 pg (28.0-33.3); Mean Corpuscular Volume 89.9 fL (83.0-100.0); Mean Platelet Volume 9.8 fL (9.4-12.4); Platelet Count 202 K/mcL (140-400); Red Blood Count 2.97 M/mcL (3.82-4.97); Red Cell Distribution Width 15.1 % (11.5-14.5); White Blood Count 10.3 K/mcL (4.3-11.1)
[2020-08-10 05:59] LABS: Calcium 8.8 mg/dL (8.6-10.3); Potassium 4.5 mEq/L (3.5-5.1)
[2020-08-10] MEDS: 0.9 % Sodium Chloride 1,000 ML IVC SCH ×2 (06:16→06:17)
[2020-08-10] MEDS: Clindamycin 300 MG/50 ML 300 MG/50 ML IV.SOLN IVPB SCH ×3 (06:17→20:59)
[2020-08-10] MEDS: *HR* SitaGLIPtin 100 MG TABLET PO SCH (07:50)
[2020-08-10] MEDS: Aspirin Enteric Coated 81 MG Tablet PO SCH (07:50)
[2020-08-10] MEDS: Cholecalciferol (D-3) 1,000 UNIT (25MCG) TABLET PO SCH (07:50)
[2020-08-10] MEDS: Insulin LISPRO 300 UNITS/3 ML VIAL SUBQ SCH ×4 (07:56→21:38)
[2020-08-10] MEDS ORDERED: *HR* HYDROcodone/Acet 5/325 mg TABLET PO PRN (11:15)
[2020-08-11 03:14] LABS: Basophils % 0.3 %; Eosinophils # 0.1 K/mcL (0.0-0.6); Eosinophils % 0.8 %; Hematocrit 27.5 % (35.3-44.9); Hemoglobin 8.5 g/dL (11.5-15.4); Immature Granulocytes % 0.4 % (0-4); Lymphocytes # 3.5 K/mcL (0.6-4.6); Mean Corpuscular HGB Conc 30.9 g/dL (31.6-35.5); Mean Corpuscular Hemoglobin 27.6 pg (28.0-33.3); Mean Corpuscular Volume 89.3 fL (83.0-100.0); Mean Platelet Volume 10.3 fL (9.4-12.4); Monocytes # 1.2 K/mcL (0.0-1.3); Monocytes % 11.7 %; Neutrophils # 5.7 K/mcL (1.6-8.9); Platelet Count 214 K/mcL (140-400); Red Blood Count 3.08 M/mcL (3.82-4.97); Segmented Neutrophils % 53.8 %; White Blood Count 10.5 K/mcL (4.3-11.1)
[2020-08-11 03:37] LABS: Calcium 8.8 mg/dL (8.6-10.3); Potassium 4.3 mEq/L (3.5-5.1)
[2020-08-11] MEDS: 0.9 % Sodium Chloride 1,000 ML IVC SCH (03:52)
[2020-08-11] MEDS: Clindamycin 300 MG/50 ML 300 MG/50 ML IV.SOLN IVPB SCH ×2 (04:54→12:47)
[2020-08-11] MEDS: Cholecalciferol (D-3) 1,000 UNIT (25MCG) TABLET PO SCH (07:43)
[2020-08-11] MEDS: *HR* SitaGLIPtin 100 MG TABLET PO SCH (07:43)
[2020-08-11] MEDS: Aspirin Enteric Coated 81 MG Tablet PO SCH (07:43)
[2020-08-11] MEDS: Insulin LISPRO 300 UNITS/3 ML VIAL SUBQ SCH ×4 (07:44→21:39)
[2020-08-12 02:00] LABS: Calcium 8.5 mg/dL (8.6-10.3); Potassium 4.1 mEq/L (3.5-5.1)
[2020-08-12] MEDS: *HR* SitaGLIPtin 100 MG TABLET PO SCH (08:23)
[2020-08-12] MEDS: Aspirin Enteric Coated 81 MG Tablet PO SCH (08:24)
[2020-08-12] MEDS: Cholecalciferol (D-3) 1,000 UNIT (25MCG) TABLET PO SCH (08:24)
[2020-08-12] MEDS: Insulin LISPRO 300 UNITS/3 ML VIAL SUBQ SCH ×5 (08:33→20:46)
[2020-08-12] MEDS: Ondansetron 4 MG/2 ML VIAL IVP PRN (11:04)
[2020-08-12] MEDS: *HR* Rivaroxaban 10 MG TABLET PO SCH (18:10)
[2020-08-12] MEDS: 0.9 % Sodium Chloride 1,000 ML IVC SCH ×3 (20:31→22:24)
[2020-08-12] MEDS: traZODone 50 MG TABLET PO PRN (20:50)
[2020-08-13 03:36] LABS: Calcium 8.9 mg/dL (8.6-10.3); Potassium 4.2 mEq/L (3.5-5.1)
[2020-08-13] MEDS: 0.9 % Sodium Chloride 1,000 ML IVC SCH (06:37)
[2020-08-13] MEDS: Insulin LISPRO 300 UNITS/3 ML VIAL SUBQ SCH ×4 (08:00→19:46)
[2020-08-13] MEDS: *HR* SitaGLIPtin 100 MG TABLET PO SCH (08:01)
[2020-08-13] MEDS: Cholecalciferol (D-3) 1,000 UNIT (25MCG) TABLET PO SCH (08:01)
[2020-08-13] MEDS: Aspirin Enteric Coated 81 MG Tablet PO SCH (08:01)
[2020-08-13] MEDS: Acetaminophen 325 MG TABLET PO PRN (08:08)
[2020-08-13] MEDS: *HR* Rivaroxaban 10 MG TABLET PO SCH (18:01)
[2020-08-14] MEDS: *HR* SitaGLIPtin 100 MG TABLET PO SCH (08:23)
[2020-08-14] MEDS: Aspirin Enteric Coated 81 MG Tablet PO SCH (08:24)
[2020-08-14] MEDS: Cholecalciferol (D-3) 1,000 UNIT (25MCG) TABLET PO SCH (08:24)
[2020-08-14] MEDS: Insulin LISPRO 300 UNITS/3 ML VIAL SUBQ SCH ×4 (08:25→21:54)
[2020-08-14] MEDS: Acetaminophen 325 MG TABLET PO PRN (15:10)
[2020-08-14] MEDS: Ondansetron 4 MG/2 ML VIAL IVP PRN ×2 (15:24→16:23)
[2020-08-14] MEDS: *HR* Rivaroxaban 10 MG TABLET PO SCH (16:35)
[2020-08-14] MEDS: traZODone 50 MG TABLET PO PRN (21:54)
[2020-08-15 05:59] LABS: Calcium 9.2 mg/dL (8.6-10.3); Potassium 4.2 mEq/L (3.5-5.1)
[2020-08-15] MEDS: Cholecalciferol (D-3) 1,000 UNIT (25MCG) TABLET PO SCH (08:31)
[2020-08-15] MEDS: Aspirin Enteric Coated 81 MG Tablet PO SCH (08:31)
[2020-08-15] MEDS: *HR* SitaGLIPtin 100 MG TABLET PO SCH (08:31)
[2020-08-15] MEDS: Insulin LISPRO 300 UNITS/3 ML VIAL SUBQ SCH ×4 (08:34→20:00)
[2020-08-15] MEDS: Ondansetron 4 MG/2 ML VIAL IVP PRN (12:14)
[2020-08-15] MEDS: *HR* Rivaroxaban 10 MG TABLET PO SCH (16:46)
[2020-08-16] MEDS: Acetaminophen 325 MG TABLET PO PRN (02:43)
[2020-08-16] MEDS: Ondansetron 4 MG/2 ML VIAL IVP PRN (02:43)
[2020-08-16] MEDS: Cholecalciferol (D-3) 1,000 UNIT (25MCG) TABLET PO SCH (08:34)
[2020-08-16] MEDS: Aspirin Enteric Coated 81 MG Tablet PO SCH (08:34)
[2020-08-16] MEDS: *HR* SitaGLIPtin 100 MG TABLET PO SCH (08:39)
[2020-08-16] MEDS: Insulin LISPRO 300 UNITS/3 ML VIAL SUBQ SCH ×2 (08:41→11:40)
[2020-08-16 11:32] VITALS: BP 104/68
[2020-08-16 15:52] LABS: Adenovirus Not Detected (Not Detect); Coronavirus 229E Not Detected (Not Detect); Coronavirus HKU1 Not Detected (Not Detect); Coronavirus NL63 Not Detected (Not Detect); Coronavirus OC43 Not Detected (Not Detect); Human Metapneumovirus Not Detected (Not Detect); Human Rhinovirus/Enterovirus Not Detected (Not Detect); Influenza A Subtype 2009 H1 Not Detected (Not Detect); Influenza B Not Detected (Not Detect); Parainfluenza Virus 1 Not Detected (Not Detect); Parainfluenza Virus 2 Not Detected (Not Detect); Parainfluenza Virus 3 Not Detected (Not Detect); SARS-CoV-2 Not Detected (Not Detect)
[2020-08-16 15:53] LABS: Bordetella Pertussis Not Detected (Not Detect); Chlamydophila pneumoniae Not Detected (Not Detect); Mycoplasma pneumoniae Not Detected (Not Detect); Parainfluenza Virus 4 Not Detected (Not Detect); Respiratory Syncytial Virus Not Detected (Not Detect)
== END 2020-08-16 17:44 ==
LOC: 3NENU → SUATTDRO 19:22
PROVIDERS: ADMIT Internal Medicine; ATTEND Internal Medicine

== ENCOUNTER 2021-11-02 14:58 | Inpatient (IN) ==
[2021-11-02] MEDS ORDERED: Naloxone 0.4 MG/ML INJ IVP PRN (19:38)
[2021-11-02] MEDS ORDERED: Acetaminophen 325 MG TABLET PO PRN (19:38)
[2021-11-02] MEDS ORDERED: *HR* Heparin 5,000 UNIT/ML VIAL IVP PRN (19:44)
[2021-11-02] MEDS ORDERED: *HR* Dextrose 50 % in Water (Syg) 50 ML SYRINGE IVP PRN (20:53)
[2021-11-02] MEDS ORDERED: Dextrose Gel 15 GM/37.5 ML TUBE PO PRN ×2 (20:53)
[2021-11-02] MEDS ORDERED: D5% in Water 1,000 ML IVC PRN (20:53)
[2021-11-02] MEDS: Heparin 25,000UNIT/250ML 1/2NS 25,000 UNIT/250 ML IV.SOLN IVC SCH (21:38)
[2021-11-03 04:03] LABS: Basophils # 0.1 K/mcL (0.0-0.2); Basophils % 0.7 %; Eosinophils # 0.1 K/mcL (0.0-0.6); Eosinophils % 1.3 %; Hemoglobin 8.6 g/dL (11.5-15.4); Immature Granulocytes % 0.7 % (0-4); Lymphocytes # 3.1 K/mcL (0.6-4.6); Lymphocytes % 36.1 %; Mean Corpuscular HGB Conc 30.7 g/dL (31.6-35.5); Mean Corpuscular Hemoglobin 28.8 pg (28.0-33.3); Mean Corpuscular Volume 93.6 fL (83.0-100.0); Mean Platelet Volume 9.4 fL (9.4-12.4); Monocytes # 0.9 K/mcL (0.0-1.3); Monocytes % 10.5 %; Neutrophils # 4.4 K/mcL (1.6-8.9); Platelet Count 392 K/mcL (140-400); Red Blood Count 2.99 M/mcL (3.82-4.97); Red Cell Distribution Width 15.1 % (11.5-14.5); Segmented Neutrophils % 50.7 %; White Blood Count 8.6 K/mcL (4.3-11.1)
[2021-11-03 04:16] LABS: Heparin anti-factor XA UFH 0.32 IU/mL (0.30-0.70); INR 1.1; Prothrombin Time 12.2 Seconds (9.4-12.1)
[2021-11-03 04:18] LABS: Activated Partial Thrombo Time 69.9 Seconds (26.0-36.0)
[2021-11-03 04:23] LABS: Estimated Average Glucose 100 mg/dl; Hemoglobin A1C 5.1 %
[2021-11-03 04:24] LABS: Albumin 2.5 g/dL (3.5-5.7); Albumin/Globulin Ratio 0.7 (1.1-2.2); Bilirubin,Total 0.3 mg/dL (0.3-1.0); Calcium 8.6 mg/dL (8.6-10.3); Globulin 3.8 g/dL (2.4-3.5); Magnesium 1.8 mg/dL (1.6-2.6); Phosphorous 3.6 mg/dL (2.7-4.5); Potassium 3.2 mEq/L (3.5-5.1); Total Protein 6.3 g/dL (6.4-8.9)
[2021-11-03] MEDS: Insulin LISPRO 300 UNITS/3 ML VIAL SUBQ SCH ×3 (07:56→16:51)
[2021-11-03 10:26] LABS: % Iron Saturation 53 % (15-50); Iron 82 mcg/dL (50-170); Transferrin 110 mg/dL (203-362)
[2021-11-03 10:44] LABS: Ferritin 825 ng/mL (10-120)
[2021-11-03 14:44] LABS: Bilirubin,Urine Negative (Negative); Blood,Urine Small (Negative); Clarity,Urine Ex.Turbid (Clear); Color,Urine Yellow (Yellow); Glucose,Urine (UA) Normal (Normal); Ketones,Urine Negative (Negative); Leukocyte Esterase,Urine Large (Negative); Nitrite,Urine Negative (Negative); Protein,Urine 100 mg/dL (Neg-Trace); Specific Gravity,Urine 1.006 (1.010-1.025); Urobilinogen,Urine Normal (Normal)
[2021-11-03] MEDS: *HR* Heparin 5,000 UNIT/ML VIAL IVP PRN (19:55)
[2021-11-03] MEDS: Melatonin 3 MG TABLET PO PRN (23:04)
[2021-11-03] MEDS: Insulin DETEMIR 100 UNIT/ML X5UNITS SUBQ SCH (23:06)
[2021-11-04] MEDS: Heparin 25,000UNIT/250ML 1/2NS 25,000 UNIT/250 ML IV.SOLN IVC SCH ×2 (00:11→22:35)
[2021-11-04 08:26] LABS: Calcium 8.5 mg/dL (8.6-10.3); Potassium 3.4 mEq/L (3.5-5.1)
[2021-11-04] MEDS: Insulin LISPRO 300 UNITS/3 ML VIAL SUBQ SCH ×3 (08:44→16:26)
[2021-11-04] MEDS: Melatonin 3 MG TABLET PO PRN (22:35)
[2021-11-04] MEDS: Insulin DETEMIR 100 UNIT/ML X5UNITS SUBQ SCH (22:35)
[2021-11-05 03:28] LABS: Calcium 8.5 mg/dL (8.6-10.3); Potassium 3.4 mEq/L (3.5-5.1)
[2021-11-05] MEDS: Insulin LISPRO 300 UNITS/3 ML VIAL SUBQ SCH ×3 (08:47→17:01)
[2021-11-05] MEDS: Aspirin Enteric Coated 81 MG Tablet PO SCH (08:48)
[2021-11-05] MEDS: Heparin 25,000UNIT/250ML 1/2NS 25,000 UNIT/250 ML IV.SOLN IVC SCH (19:19)
[2021-11-05] MEDS: Insulin DETEMIR 100 UNIT/ML X5UNITS SUBQ SCH (22:57)
[2021-11-06 06:58] LABS: Calcium 8.7 mg/dL (8.6-10.3); Potassium 3.4 mEq/L (3.5-5.1)
[2021-11-06] MEDS: Insulin LISPRO 300 UNITS/3 ML VIAL SUBQ SCH ×3 (07:37→16:29)
[2021-11-06] MEDS: Aspirin Enteric Coated 81 MG Tablet PO SCH (07:41)
[2021-11-06 13:32] LABS: Total Volume 24 Hour,Urine 1.96 Liters (0.60-1.60)
[2021-11-06] MEDS: Heparin 25,000UNIT/250ML 1/2NS 25,000 UNIT/250 ML IV.SOLN IVC SCH (16:26)
[2021-11-06] MEDS: Insulin DETEMIR 100 UNIT/ML X5UNITS SUBQ SCH (20:55)
[2021-11-07] MEDS: Insulin LISPRO 300 UNITS/3 ML VIAL SUBQ SCH ×3 (08:02→16:24)
[2021-11-07] MEDS: Aspirin Enteric Coated 81 MG Tablet PO SCH (08:57)
[2021-11-07 09:01] LABS: Calcium 9.1 mg/dL (8.6-10.3); Potassium 3.8 mEq/L (3.5-5.1)
[2021-11-07] MEDS: Heparin 25,000UNIT/250ML 1/2NS 25,000 UNIT/250 ML IV.SOLN IVC SCH (11:49)
[2021-11-07] MEDS: Insulin DETEMIR 100 UNIT/ML X5UNITS SUBQ SCH (21:20)
[2021-11-08 03:41] LABS: Calcium 8.6 mg/dL (8.6-10.3); Potassium 4.1 mEq/L (3.5-5.1)
[2021-11-08] MEDS: *HR* Heparin 5,000 UNIT/ML VIAL IVP PRN (07:35)
[2021-11-08] MEDS: Insulin LISPRO 300 UNITS/3 ML VIAL SUBQ SCH ×3 (07:52→16:32)
[2021-11-08] MEDS ORDERED: *HR* Heparin 10,000 UNIT/10 ML VIAL IV PRN (10:03)
[2021-11-08] MEDS ORDERED: 0.9 % Sodium Chloride 250 ML IVC PRN (10:03)
[2021-11-08] MEDS: Aspirin Enteric Coated 81 MG Tablet PO SCH (10:04)
[2021-11-08] MEDS ORDERED: 0.9 % Sodium Chloride 2,000 ML PRIME SCH (10:15)
[2021-11-08] MEDS ORDERED: Heparin 1,000 UNITS/500 mL 500 ML ONE (11:27)
[2021-11-08] MEDS ORDERED: *HR* Midazolam HCl 2 MG/2 ML VIAL IVP ONE (11:42)
[2021-11-08] MEDS ORDERED: Clindamycin 600 MG/50 ML 600 MG/50 ML IV.SOLN IVPB ONE (11:42)
[2021-11-08] MEDS ORDERED: *HR* FentaNYL (PF) 100 MCG/2 ML VIAL IVP ONE (11:42)
[2021-11-08] MEDS ORDERED: 0.9 % Sodium Chloride 500 ML ONE (12:09)
[2021-11-08 12:20] LABS: Hepatitis B Surface Antibody < 3.10 mIU/mL
[2021-11-08] MEDS ORDERED: *HR* Heparin 5,000 UNIT/ML VIAL ONE (12:26)
[2021-11-08 12:31] LABS: Hepatitis B Surface Antigen Nonreactive (Nonreactive)
[2021-11-08] MEDS: Ondansetron 4 MG/2 ML VIAL IVP PRN (15:11)
[2021-11-08] MEDS ORDERED: Pantoprazole 40 MG VIAL IVP ONE (15:42)
[2021-11-08] MEDS ORDERED: *HR* Rivaroxaban 15 MG TABLET PO ONE (17:00)
[2021-11-08] MEDS: Melatonin 3 MG TABLET PO PRN (22:30)
[2021-11-08] MEDS: Insulin DETEMIR 100 UNIT/ML X5UNITS SUBQ SCH (22:30)
[2021-11-08] MEDS: Heparin 25,000UNIT/250ML 1/2NS 25,000 UNIT/250 ML IV.SOLN IVC SCH (22:57)
[2021-11-09 04:04] LABS: Calcium 9.1 mg/dL (8.6-10.3); Potassium 4.1 mEq/L (3.5-5.1)
[2021-11-09] MEDS: Insulin LISPRO 300 UNITS/3 ML VIAL SUBQ SCH ×2 (07:58→12:43)
[2021-11-09] MEDS ORDERED: *HR* Heparin 10,000 UNIT/10 ML VIAL IV PRN (08:19)
[2021-11-09] MEDS ORDERED: 0.9 % Sodium Chloride 250 ML IVC PRN (08:19)
[2021-11-09] MEDS ORDERED: Heparin 1,000 UNITS/500 mL 500 ML ONE (09:51)
[2021-11-09] MEDS ORDERED: Lidocaine 1% 20 ML MDV ONE (09:51)
[2021-11-09] MEDS ORDERED: *HR* Rivaroxaban 15 MG TABLET PO SCH (10:00)
[2021-11-09] MEDS ORDERED: *HR* Heparin 5,000 UNIT/ML VIAL ONE (10:06)
[2021-11-09] MEDS: Aspirin Enteric Coated 81 MG Tablet PO SCH (10:36)
[2021-11-09] MEDS ORDERED: Apixaban 5 MG TABLET PO ONE (10:51)
[2021-11-09 12:01] VITALS: PULSE 95; O2SAT 99
[2021-11-09] MEDS: Ondansetron 4 MG/2 ML VIAL IVP PRN (12:11)
[2021-11-09 17:41] VITALS: BP 101/67; TEMP 98.1
== END 2021-11-09 18:46 | disposition home health service (06) | DRG 299 ==
LOC: 2ANU → SUATTDRO 19:06
PROVIDERS: ADMIT Internal Medicine; ATTEND Family Medicine
PROC: IRPERMA (2021-11-03 10:00)